=== PATIENT | male | born 1950 | race Caucasian/White ===

== ENCOUNTER 2021-11-06 12:40 | Inpatient (IN) | payer MEDICARE, OTHER ==
[2021-11-06] MEDS ORDERED: HEPARIN SODIUM,PORCINE 5,000 UNIT/ML 1 ML VIAL IV STA (12:48)
[2021-11-06] MEDS ORDERED: ATORVASTATIN 80 MG TAB PO STA (12:48)
[2021-11-06] MEDS ORDERED: LIDOCAINE 1% INJ 10MG/ML (20 ML MDV) ONE (12:51)
[2021-11-06] MEDS ORDERED: HEPARIN SODIUM 1,000 UN/ML (10ML VL) ONE (12:51)
[2021-11-06] MEDS ORDERED: VERAPAMIL 2.5 MG/ML 2 ML AMP ONE (12:51)
[2021-11-06] MEDS ORDERED: HEPARIN SODIUM 1,000 UN/ML (10ML VL) MISCELLANE ONE (12:52)
[2021-11-06] MEDS ORDERED: NALOXONE 0.4 MG/ML 1 ML VIAL IV PRN (12:55)
[2021-11-06] MEDS ORDERED: IV FLUID CONTINUATION 1,000 ML IV ONE (12:58)
--- NOTE | 2021-11-06 13:00 | ED ---
General Adult HPI - General Chief complaint: Chest Pain Stated complaint: STEMI Source: EMS Mode of arrival: EMS Limitations: no limitations - History of Present Illness Initial comments: Dictation was produced using [employer] dictation software. please excuse any grammatical, word or spelling errors. Chief Complaint: 71-year-old male presents to the emergency Department for ST segment elevation VT History of Present Illness: Patient is a 71-year-old male he was brought into the emergency department for ST segment elevation VT. Patient began having chest symptoms starting this morning upon waking. He states that it is a substernal tingling that radiates down to his left upper extremity. Also radiates to his right shoulder and right jaw. Patient denies any significant history. Patient did have mild shortness of breath. EMS was called to the scene they did an EKG showed inferior STEMI. He was given nitro and aspirin. Patient still having some active symptoms but reports significant improvement with the nitro glycerin. Denies any numbness to the arms or legs. The ROS documented in this emergency department record has been reviewed and confirmed by me. Those systems with pertinent positive or negative responses have been documented in the HPI. All other systems are other negative and/or noncontributory. PHYSICAL EXAM: General Impression: Alert and oriented x3, mild distress. HEENT: Normocephalic atraumatic, extra-ocular movements intact, pupils equal and reactive to light bilaterally, mucous membranes moist. Cardiovascular: Heart regular rate and rhythm Chest: Able to complete full sentences, no retractions, no tachypnea Abdomen: abdomen soft, non-tender, non-distended, no organomegaly Musculoskeletal: Pulses present and equal in all extremities, no peripheral edema Motor: no focal deficits noted Neurological: CN II-XII grossly intact, no focal motor or sensory deficits noted Skin: Intact with no visualized rashes Psych: Normal affect and mood ED course: 71-year-old male presents emergency department for ST segment elevation VT. Vital signs upon arrival are within acceptable limits. Prehospital EKG was reviewed showing inferior ST segment elevation VT with reciprocal depressions. STEMI was paged. Patient arrived in trauma bay 2. He received aspirin and nitroglycerin. Emergency room EKG showed inferior STEMI with cervical changes in the high lateral leads. Patient given heparin bolus. Patient disposition directly to the catheterization lab. Patient admitted to Dr. Feldman. EKG interpretation: Ventricular rate 71, normal sinus rhythm, KS interval 92, QRS 120, QTC 417. EKG represents ST segment elevation VT. - Related Data Allergies Allergy/AdvReac Type Severity Reaction Status Date / Time No Known Allergies Allergy Verified 11/06/21 12:41 Review of Systems ROS Statement: Those systems with pertinent positive or pertinent negative responses have been documented in the HPI. ROS Other: All systems not noted in ROS Statement are negative. Past Medical History Past Medical History: No Reported History History of Any Multi-Drug Resistant Organisms: None Reported Past Surgical History: Hernia Repair Past Psychological History: No Psychological Hx Reported Smoking Status: Current every day smoker Past Alcohol Use History: None Reported Past Drug Use History: Marijuana General Exam Limitations: no limitations Course Vital Signs 11/06/21 12:41 Temperature 97.8 F Pulse Rate 85 Respiratory 22 Rate Blood Pressure 128/72 O2 Sat by Pulse 100 Oximetry Critical Care Time Critical Care Time: Yes Total Critical Care Time: 18 Disposition Clinical Impression: STEMI (ST elevation myocardial infarction) Disposition: ADMITTED IP TO THIS HOSP Condition: Critical Referrals: None,Stated [Primary Care Provider] - 1-2 days
[2021-11-06] MEDS ORDERED: LIDOCAINE 1% INJ 10MG/ML (20 ML MDV) SQ ONE (13:05)
[2021-11-06] MEDS ORDERED: fentaNYL (PF) 50 MCG/ML 5 ML AMP IV ONE (13:05)
[2021-11-06] MEDS ORDERED: VERAPAMIL SYRINGE (5 MG/10 ML) INTRAARTER ONE (13:07)
[2021-11-06 13:12] LABS: Basophils # (A) 0.2 k/uL (0-0.2); Basophils % (A) 1 %; Eosinophils # (A) 0.3 k/uL (0-0.7); Eosinophils % (A) 3 %; HCT 51.2 % (39.0-53.0); HGB 17.3 gm/dL (13.0-17.5); Lymphocytes # (A) 4.5 k/uL (1.0-4.8); Lymphocytes % (A) 38 %; MCH 31.1 pg (25.0-35.0); MCHC 33.8 g/dL (31.0-37.0); MCV 92.1 fL (80.0-100.0); Mean Platelet Volume 8.4; Monocytes # (A) 0.8 k/uL (0-1.0); Monocytes % (A) 6 %; Neutrophils % (A) 50 %; Platelet Count 278 k/uL (150-450); RBC 5.57 m/uL (4.30-5.90); RDW 12.9 % (11.5-15.5)
[2021-11-06] MEDS: HEPARIN SODIUM 1,000 UN/ML (10ML VL) IV ONE ×3 (13:12→13:59)
[2021-11-06] MEDS ORDERED: PRASUGREL 10 MG TAB ONE (13:16)
--- NOTE | 2021-11-06 13:16 | XR ---
EXAMINATION TYPE: XR chest 1V portable DATE OF EXAM: 11/06/2021 COMPARISON: NONE HISTORY: STEMI. TECHNIQUE: Single AP portable frontal upright view of the chest is obtained. FINDINGS: There is chronic parenchymal change without suspicious focal air space opacity, pleural ef fusion, or pneumothorax seen. The cardiac silhouette size is within normal limits. The osseous str uctures are intact. Overlying EKG leads. IMPRESSION: No acute process.
[2021-11-06] MEDS ORDERED: PRASUGREL 10 MG TAB PO ONE (13:19)
[2021-11-06 13:20] LABS: Calcium 8.8 mg/dL (8.4-10.2); Potassium 3.9 mmol/L (3.5-5.1)
[2021-11-06 13:21] LABS: Partial Thromboplastin Time 23.9 sec (22.0-30.0); Prothrombin Time 10.4 sec (9.0-12.0)
[2021-11-06] MEDS ORDERED: IOPAMIDOL-370 125ML BTL INJ ONE (13:33)
[2021-11-06] MEDS ORDERED: IOPAMIDOL-370 100ML BTL INJ ONE (13:52)
[2021-11-06] MEDS ORDERED: ATROPINE SULFATE 0.1 MG/ML 10ML SYRINGE IV PRN (14:12)
[2021-11-06] MEDS ORDERED: RX INFO: IV CONTRAST WAS GIVEN 1 EACH MISC MISCELLANE PRN (14:12)
[2021-11-06] MEDS ORDERED: NITROGLYCERIN SL TABS 0.4 MG TAB SUBLINGUAL PRN (14:12)
[2021-11-06] MEDS ORDERED: MAG HYDROX/AL HYDROX/SIMETH 30 ML CUP PO PRN (14:12)
[2021-11-06] MEDS ORDERED: ZOLPIDEM 5 MG TAB PO PRN (14:12)
[2021-11-06] MEDS ORDERED: SODIUM CHLORIDE 0.9% 1,000 ML IV SCH (14:15)
--- NOTE | 2021-11-06 16:41 | CONS ---
CONSULTATION Mr. Miller is a 71-year-old male who does not see a primary care physician, who woke up this morning with severe substernal chest discomfort that persisted associated with dyspnea and mild dizziness. Came into the emergency room, was noted to have evidence of inferior wall myocardial infarction with possible posterior wall extension. The patient has no prior cardiac history. He had a similar episode about 3 months ago that subsequently resolved. He has no chronic dyspnea on exertion. No dizziness or palpitations on a regular basis. No syncope. No PND, orthopnea or peripheral edema. He takes no medication at home. His coronary risk factors are remarkable for smoking. He is nondiabetic. No documented hyperlipidemia. REVIEW OF SYSTEMS: RESPIRATORY system: He has no documented history of asthma, emphysema or bronchitis. GI system: No recent GI bleeding. No peptic ulcer disease. system: No dysuria or hematuria. Nervous system: No stroke or seizure. He smokes on a daily basis. Drinks caffeine but no alcohol. PHYSICAL EXAMINATION: 71-year-old male, alert, oriented, mild discomfort. Heart rate in the 70s. Blood pressure 130/70. HEAD: Normocephalic. Eyes: Sclerae anicteric. NECK: Good carotid upstroke. No bruit. No jugular venous distention. LUNGS with decreased air exchange. No wheezes. HEART: Regular rate and rhythm, S1, S2. No S3. No gallop. ABDOMEN: Soft, nontender. Positive bowel sounds. No organomegaly. EXTREMITIES: Decreased distal pulses. No edema. EKG revealed sinus mechanism, rate of 71, normal axis, ST elevation in lead 2, 3, AVF as ST depression in lead 1, aVL and elevation in lateral precordial leads consistent with inferolateral myocardial infarction with possible posterior extension. IMPRESSION: 1. Acute myocardial infarction. 2. Chronic tobacco use. RECOMMENDATIONS: I recommend proceeding with coronary angiography. The rationale behind the procedure as well as risks and complications were discussed with the patient who is in full understanding and agreement. Thank you for this consult. We will follow with you. MMODL / IJN: [id number] /
[2021-11-06] MEDS ORDERED: ALPRAZolam 0.25 MG TAB PO PRN (18:11)
[2021-11-06] MEDS ORDERED: TEMAZEPAM 15 MG CAP PO PRN (18:11)
--- NOTE | 2021-11-06 18:32 | CC ---
CARDIAC CATHETERIZATION REPORT Mr. Miller is a 71-year-old male who is not followed by a physician, history of chronic tobacco use, who presented with an acute inferior wall myocardial infarction. In view of that, recommendation made regarding cardiac catheterization, angioplasty and stenting, the procedure as well as the risks and the complications were discussed with the patient who is in full understanding and agreement. PROCEDURE DESCRIPTION: Patient was brought to photo lab manager. He was prepped and draped in conventional fashion, received Benadryl and fentanyl and after achieving moderate conscious sedated state, a 6-Jordanian sheath was introduced in the right radial artery. Right coronary angiography performed using 6-Jordanian 4 bend, right Nely guiding catheter. After obtaining images of the right coronary artery, angioplasty and stenting were performed. Following that, a 5-Jordanian 3.5 bend left Nely catheters was introduced in the system and images were obtained. Following that, a 5-Jordanian tight pigtail catheter was introduced into the left ventricle and left ventricular end-diastolic pressure was calculated. Following that, catheter and sheath were removed. Hemostasis was obtained with deployment of a TR band. There was no immediate complication. Patient is returned to his room in stable condition. Of note, the patient received a total of 7000 units of intravenous heparin during the procedure, his ACT was followed and he received a loading dose of Effient. RESULTS: ANGIOGRAPHY: LEFT MAIN: This is a large-sized vessel bifurcating into left circumflex, left anterior descending artery, left main coronary artery has no evidence of high-grade stenosis. LEFT ANTERIOR DESCENDING ARTERY: This vessel reaching to the apex, tapers down in distal third, giving rise to 3 obtuse marginal branches. The left anterior descending artery has a 20% to 30% plaque proximally in mid segment. The rest of the vessel has no high-grade stenosis. LEFT CIRCUMFLEX: This is a nondominant vessel giving rise to 3 obtuse marginal branches. Prior to the takeoff of the first obtuse marginal branch, there is a 70% to 80% stenosis extending in the first obtuse marginal branch with area of stenosis in the obtuse marginal branch of 90%. RIGHT CORONARY ARTERY: This vessel is subtotally occluded in the mid segment with no significant antegrade flow. The proximal segment of the RCA has about a 70% stenosis. LEFT VENTRICULOGRAM: Left ventriculogram was not performed. HEMODYNAMICS: There was no gradient across the aortic valve. The left ventricular end- diastolic pressure was 25-30 mmHg. ANGIOPLASTY AND STENTING: Using the 6-Jordanian FR4 guiding catheter, after cannulating the right coronary ostium, a 0.014 balanced medium weight J-wire with the help of a straight microcatheter was used to cross the total occlusion, positioned the wire distally. Subsequently a 2.5 x 12 mm Trek balloon was advanced and 2 inflations were done at 8 atmospheres. Following that, the balloon was removed and a 3.5 x 18 mm Xience SkyPoint was advanced, deployed and was dilated at 16 atmospheres. Following that, the balloon was removed and a 3.75 x 12 mm NC Trek balloon was advanced and inflation in the stent was done at 12 atmospheres. Following that, the balloon was removed and a 4.0 x 23 mm Xience SkyPoint stent was deployed proximally and it was dilated 16 atmospheres. Following that, and after removing the balloon, a 4.0 x 12 mm NC Trek balloon was advanced to the mid lesion and one inflation at 12 atmospheres was done. After the last inflation, after appropriate wait, the balloon and the guidewire were withdrawn back in the guiding catheter. Images were obtained repeated. Those images revealed stable successful stenting. RESULTS: 1. Successful stenting of the mid right coronary artery with reduction of stenosis from 100% to 0% with successful stenting of the proximal RCA with reduction of stenosis from 70% to 0%. 2. Significant disease in the proximal left circumflex and the first obtuse marginal branch. 3. Mild disease in the LAD. 4. Elevated left ventricular end-diastolic pressure. RECOMMENDATIONS: Patient will be continued on dual antiplatelet treatment. His medical regimen will be adjusted. He will continue on the dual antiplatelet treatment for at least 1 year. He will be evaluated to undergo percutaneous revascularization of his left circumflex at a later time. Of note, the patient's EKG changes and chest discomfort improved drastically at the end the procedure. Those findings and recommendations were discussed with the patient and his family, and they are in full understanding and agreement. Duration of sedation is 48 minutes. MMCHERIE / ARPITA: [id number] / MTDD
[2021-11-06 19:01] LABS: Glucose,Whole Blood 163 mg/dL (75-99)
--- NOTE | 2021-11-06 19:08 | HP ---
HISTORY AND PHYSICAL CHIEF COMPLAINT: Chest pain. HISTORY OF PRESENT ILLNESS: This 71-year-old gentleman with a past medical history of no significant medical issues except hernia repair and the patient is a smoker, not being followed by any family physician in the outpatient setting, had severe chest pain felt in the anterior part of the chest as well as shortness of breath and some dizziness. The pain is radiating to the back also. The patient came to [facility] ER. EKG showed features of hyperacute inferior myocardial infarction with ST-segment elevations in the anterior leads and the ST depressions. The patient was seen by Cardiology. Troponins elevated up to 0.154. COVID-19 was negative. The patient underwent cardiac catheterization and percutaneous intervention. The details of reports are not available at this time. There is no history of fever, rigors. No history of headache, loss of consciousness, seizures. PAST MEDICAL HISTORY: History of hernia repair. MEDICATIONS: None. ALLERGIES: None. FAMILY HISTORY: No history of heart disease or strokes in the family. SOCIAL HISTORY: History of smoking, occasional THC. REVIEW OF SYSTEMS: ENT: No diminished vision. No diminished hearing. CARDIOVASCULAR system as mentioned earlier. RESPIRATORY: As mentioned earlier. GI: No nausea or vomiting. : No dysuria. NERVOUS SYSTEM: No numbness or weakness. ALLERGY/IMMUNOLOGY: No asthma or hayfever. MUSCULOSKELETAL: As mentioned earlier. HEMATOLOGY/ONCOLOGY: No history of anemia. ENDOCRINE: No history of diabetes or hypothyroidism. CONSTITUTIONAL: As mentioned earlier. DERMATOLOGY: Negative. RHEUMATOLOGY: Negative. PSYCHIATRIC: As mentioned earlier. PHYSICAL EXAM: Alert and oriented times three. Pulse 68, blood pressure 121/60, respirations 16, temperature is normal. Pulse ox 98% on 2 L. HEENT: Conjunctivae normal. NECK: No JVD. CARDIOVASCULAR: S1, S2 muffled. RESPIRATORY: Breath sounds diminished in the bases. No rhonchi. No crackles. ABDOMEN: Soft. Nontender. No mass palpable. LEGS: No edema. No swelling. NERVOUS SYSTEM: No focal deficits. NERVOUS SYSTEM: Higher functions as mentioned earlier. Moves all four limbs. No focal deficits. LYMPHATICS: No lymph nodes palpable in the neck, axillae or groin. SKIN: No ulcer, no rash and no bleeding. JOINTS: No active deforming arthropathy. LABS: WBC 12.5, hemoglobin 17.3, sodium 136, CO2 is 15, glucose 249 and troponin 0.05. Covid 19 is negative. ASSESSMENT: 1. Acute ST-segment elevation inferior wall myocardial infarction status post cardiac catheterization and PCI. 2. Diabetes mellitus type 2 possibly new onset, uncontrolled. 3. Decreased CO2 with possible mild metabolic acidosis. 4. Hyponatremia. 5. Increased WBC, possibly reactive. 6. Troponin elevated up to 0.054. 7. History of hernia repair. 8. History of nicotine dependence. 9. History of THC. 10.Obesity with body mass index of 33.5. 11.FULL CODE. RECOMMENDATIONS AND DISCUSSION: In this 71-year-old gentleman who presented with multiple complex medical issues, at this time I recommend to continue the current medications, symptomatic treatment. Follow closely with Cardiology. Patient will be monitored in ICU. I would also recommend serum acetone and Accu-Cheks a.c. and q.h.s. Hemoglobin A1c also. Recommend closely follow with the primary physician in the outpatient setting. Prognosis guarded because of multiple complex medical issues. Further recommendations to follow. Stat labs also will be requested and UA with micro and chest x-ray which I reviewed personally showed no acute process. Further recommendations to follow. Dual antiplatelet treatment and beta blockers, JASE inhibitors, Lipitor. MMODL / IJN: [id number] / MTDDarren
[2021-11-06 21:09] LABS: Glucose,Whole Blood 205 mg/dL (75-99)
[2021-11-06] MEDS: NICOTINE 14MG/24HR PATCH TRANSDERM SCH (21:26)
[2021-11-06] MEDS: PANTOPRAZOLE 40 MG TABLET PO SCH (21:26)
[2021-11-06] MEDS: INSULIN ASPART (NovoLOG) 100 UNIT/ML VIAL SQ SCH (21:29)
[2021-11-06] MEDS: METOPROLOL TARTRATE 25 MG TAB PO SCH (21:33)
[2021-11-07 01:09] LABS: Chol/HDL Ratio 6.15 Ratio
[2021-11-07 04:07] LABS: Basophils # (A) 0.1 k/uL (0-0.2); Basophils % (A) 1 %; Eosinophils # (A) 0.2 k/uL (0-0.7); Eosinophils % (A) 1 %; HCT 47.1 % (39.0-53.0); HGB 15.7 gm/dL (13.0-17.5); Lymphocytes # (A) 2.3 k/uL (1.0-4.8); Lymphocytes % (A) 18 %; MCH 31.2 pg (25.0-35.0); MCHC 33.3 g/dL (31.0-37.0); MCV 93.5 fL (80.0-100.0); Mean Platelet Volume 8.1; Monocytes # (A) 0.9 k/uL (0-1.0); Monocytes % (A) 7 %; Neutrophils # (A) 9.2 k/uL (1.3-7.7); Neutrophils % (A) 72 %; Platelet Count 215 k/uL (150-450); RBC 5.04 m/uL (4.30-5.90); RDW 13.1 % (11.5-15.5); WBC 12.7 k/uL (3.8-10.6)
[2021-11-07 04:14] LABS: Calcium 8.8 mg/dL (8.4-10.2); Potassium 4.2 mmol/L (3.5-5.1)
[2021-11-07 06:41] LABS: Glucose,Whole Blood 181 mg/dL (75-99)
[2021-11-07] MEDS: INSULIN ASPART (NovoLOG) 100 UNIT/ML VIAL SQ SCH ×4 (06:53→21:21)
[2021-11-07] MEDS: PANTOPRAZOLE 40 MG TABLET PO SCH (06:53)
[2021-11-07 07:22] LABS: Appearance,Urine Clear (Clear); Bilirubin,Urine Negative (Negative); Blood,Urine Trace (Negative); Color,Urine Yellow; Glucose,Urine (UA) 2+ (Negative); Hyaline Casts,Urine 1 /lpf (0-2); Ketones,Urine Negative (Negative); Leukocyte Esterase,Urine Negative (Negative); Mucus,Urine Rare /hpf; Nitrite,Urine Negative (Negative); Protein,Urine Trace (Negative); RBC,Urine 1 /hpf (0-5); Urobilinogen,Urine <2.0 mg/dL (<2.0); WBC,Urine 1 /hpf (0-5)
[2021-11-07 07:38] LABS: Amphetamine Screen,Urine Not Detected (NotDetected); Barbiturate Screen,Urine Not Detected (NotDetected); Benzodiazepines Screen,Urine Not Detected (NotDetected); Cocaine Screen,Urine Not Detected (NotDetected); Methadone Screen, Urine Not Detected (NotDetected); Opiate Screen,Urine Not Detected (NotDetected); Oxycodone Screen, Urine Not Detected (NotDetected); Phencyclidine Screen,Urine Not Detected (NotDetected); Tricyclic Antidepressant,Urine Not Detected (NotDetected); Urn Cannabinoid Scrn Detected (NotDetected)
[2021-11-07 07:39] LABS: Specific Gravity,Urine 1.048 (1.001-1.035)
[2021-11-07] MEDS: METOPROLOL TARTRATE 25 MG TAB PO SCH ×2 (08:15→21:21)
[2021-11-07] MEDS: PRASUGREL 10 MG TAB PO SCH (08:15)
[2021-11-07] MEDS: ASPIRIN 81 MG PO SCH (08:15)
[2021-11-07] MEDS: NICOTINE 14MG/24HR PATCH TRANSDERM SCH (08:15)
[2021-11-07] MEDS: SPIRONOLACTONE 25 MG TAB PO SCH (08:43)
--- NOTE | 2021-11-07 11:00 | ECHOF ---
Referral Reason:ut MEASUREMENTS -------- HEIGHT: 180.3 cm WEIGHT: 108.9 kg BP: IVSd: 0.9 cm (0.6 - 1.1) LVIDd: 5.2 cm (3.9 - 5.3) LVPWd: 0.9 cm (0.6 - 1.1) IVSs: 1.6 cm LVIDs: 3.9 cm LVPWs: 1.4 cm LAESV Index (A-L): 17.83 ml/m Ao Diam: 3.3 cm (2.0 - 3.7) AV Cusp: 2.1 cm (1.5 - 2.6) LA Diam: 4.0 cm (2.7 - 3.8) MV EXCURSION: 18.807 mm (> 18.000) MV EF SLOPE: 130 mm/s (70 - 150) EPSS: 3.0 cm MV E Meño: 0.75 m/s MV DecT: 163 ms MV A Meño: 0.63 m/s MV E/A Ratio: 1.19 RAP: 5.00 mmHg RVSP: 8.27 mmHg FINDINGS -------- This was a technically good study. The left ventricular size is normal. Left ventricular wall thickness is normal. Overall left vent ricular systolic function is mild-moderately impaired with, an EF between 40 - 45 %. Inferiorlatera l Hypokinesis The right ventricle is normal in size. The left atrial size is normal. The right atrial size is normal. The aortic valve is trileaflet and appears structurally normal. The mitral valve is normal. There is trace mitral regurgitation. The tricuspid valve appears structurally normal. Trace tricuspid regurgitation present. Right chester tricular systolic pressure is normal at < 35 mmHg. There is no pulmonic regurgitation present. The aortic root size is normal. IVC Not well visulized. There is no pericardial effusion. CONCLUSIONS -------- 1. The left ventricular size is normal. 2. Left ventricular wall thickness is normal. 3. Overall left ventricular systolic function is mild-moderately impaired with, an EF between 40 - 45 %. 4. Inferiorlateral Hypokinesis 5. There is trace mitral regurgitation. 6. Trace tricuspid regurgitation present. DESOLDERER: Ana Peña RDCS
--- NOTE | 2021-11-07 11:03 | PN ---
PROGRESS NOTE Mr. Miller is a 71-year-old male who presented with an acute inferior wall myocardial infarction, underwent cardiac catheterization and was found to have totally occluded mid RCA and underwent stenting of that vessel in two segments. He had also obstructive disease involving the proximal left circumflex and first obtuse marginal branch. He is doing well this morning. He is denying any chest pain. His breathing is stable. He had mild discomfort yesterday that resolved. He denies any dizziness or palpitations. He is in sinus mechanism. He had no evidence of malignant arrhythmia. He continues to be at this time on aspirin once a day, Effient 10 mg daily, Lipitor 80 mg daily, lisinopril 2.5 mg daily, metoprolol tartrate 25 mg twice a day. PHYSICAL EXAMINATION: Blood pressure running in the 110s with a heart rate in the 60s. Lungs clear. Heart: Regular rate and rhythm. S1, S2. No S3. No rub appreciated. Abdomen soft, non-tender. Right radial pulse intact. LAB DATA: Lab data revealed a troponin peak of 186. BUN and creatinine of 15 and 1.19, potassium of 4.2, hemoglobin of 15.7. IMPRESSION: 1. Status post acute inferior wall myocardial infarction with a large dominant vessel. 2. Hyperlipidemia, not treated in the past. 3. Chronic tobacco use. RECOMMENDATIONS: From the cardiac standpoint, I will add Aldactone 25 mg to his regimen. Will obtain echocardiogram with Doppler, increase his level activity gradually. If he is stable he should be able to be transferred to telemetry floor. Depending on his progress, further recommendations will be made. The patient would require a staged procedure for his circumflex territory, and that depends on his status. The timing will be decided at that time. If he remains stable, I would expect he will be transferred to telemetry floor in the afternoon. MMODL / IJN: [id number] /
[2021-11-07 13:07] LABS: Glucose,Whole Blood 229 mg/dL (75-99)
[2021-11-07 13:16] VITALS: BMI 29.4
[2021-11-07 17:04] LABS: Glucose,Whole Blood 117 mg/dL (75-99)
--- NOTE | 2021-11-07 17:36 | PN ---
PROGRESS NOTE DATE OF SERVICE: 11/07/2021. This 71-year-old gentleman who was admitted with acute ST elevation myocardial infarction had PCI of the RCA. Patient being closely monitored. No chest pain. No palpitations. No fever. PHYSICAL EXAMINATION: Alert and oriented x3. The pulse is 58, blood pressure 106/48, respirations 16, temperature is normal. Pulse ox 98% on room air. HEENT: Conjunctivae normal. NECK: No JVD. CARDIOVASCULAR: S1, S2 muffled. RESPIRATORY: Breath sounds diminished in the bases. No rhonchi. No crackles. ABDOMEN: Soft. Nontender. NERVOUS SYSTEM: No focal deficits. LAB STUDIES: WBC 12.7, glucose 181 and 229. Hemoglobin A1c is not available. Troponin is noted. Drug screen is positive for THC. ASSESSMENT: 1. Acute ST-segment elevation myocardial infarction status post cardiac catheterization and stenting of the mid RCA with reduction of stenosis from 100% to 0%. 2. Successful stenting of the proximal RCA with reduction 70% to 0%. 3. Significant disease in the proximal left circumflex and first obtuse marginal branch and mild disease in the LAD. 4. Ejection fraction 40-45 percent with congestive heart failure and acute systolic dysfunction. 5. possibly new onset uncontrolled with hyperglycemia. 6. Decreased CO2 with possible mild metabolic acidosis, present on admission. 7. Hyponatremia. 8. Increased WBC possibly reactive. 9. Positive THC. 10.Troponin elevated up to 186. 11.History of hernia repair. 12.History of nicotine dependence. 13.Obesity with body mass index of 33.5. 14.FULL CODE. RECOMMENDATIONS AND DISCUSSION: Continue current medications, management and symptomatic treatment. Continue with dual antiplatelet treatment. Monitor blood pressure closely. Otherwise, DVT prophylaxis. Two-D echo reviewed. Prognosis guarded because of multiple complex medical issues. Closely follow with Cardiology. Recommend close followup with primary physician in the outpatient setting. MMODL / IJN: [id number] / MTDD
[2021-11-07 20:52] LABS: Glucose,Whole Blood 136 mg/dL (75-99)
[2021-11-07] MEDS ORDERED: ATORVASTATIN 80 MG TAB PO SCH (21:00)
[2021-11-08 00:04] VITALS: RESP 16
[2021-11-08 05:57] LABS: Glucose,Whole Blood 166 mg/dL (75-99)
[2021-11-08] MEDS: PANTOPRAZOLE 40 MG TABLET PO SCH (06:35)
[2021-11-08] MEDS: INSULIN ASPART (NovoLOG) 100 UNIT/ML VIAL SQ SCH ×2 (06:35→12:44)
[2021-11-08] MEDS: NICOTINE 14MG/24HR PATCH TRANSDERM SCH (08:03)
[2021-11-08] MEDS: PRASUGREL 10 MG TAB PO SCH (08:03)
[2021-11-08] MEDS: METOPROLOL TARTRATE 25 MG TAB PO SCH (08:04)
[2021-11-08] MEDS: SPIRONOLACTONE 25 MG TAB PO SCH (08:04)
[2021-11-08] MEDS: ASPIRIN 81 MG PO SCH (08:05)
[2021-11-08 08:15] LABS: Calcium 8.9 mg/dL (8.4-10.2); Potassium 4.4 mmol/L (3.5-5.1)
--- NOTE | 2021-11-08 08:52 | PN ---
PROGRESS NOTE Mr. Miller is a 71-year-old male who presented with an acute myocardial infarction, underwent stenting of the RCA. He was found to have disease in the proximal left circumflex, first obtuse marginal branch. He is doing well this morning, ambulating without difficulty. He is denying any chest pain. No dizziness. No palpitation. Continues to be on aspirin once a day, Lipitor 80 mg daily, lisinopril 2.5 mg daily, metoprolol tartrate 25 mg twice a day, spironolactone 25 mg daily and Effient 10 mg daily. PHYSICAL EXAMINATION: Blood pressure 104/60 with a heart rate in 50s. Lungs: Clear. Heart: Regular rhythm S1, S2. No S3. No rub. Abdomen: Soft nontender. Extremities: No edema. LAB DATA: BUN and creatinine of 15 and 1.34, potassium 4.4. He had an echocardiogram performed revealed an ejection fraction of 40% to 45% with inferolateral hypokinesis. IMPRESSION: 1. Status post acute inferior wall myocardial infarction with stenting of the totally occluded right coronary artery. 2. Obstructive disease in the first obtuse marginal branch and proximal left circumflex. 3. Prior history of smoking. 4. Hyperlipidemia. 5. Ischemic cardiomyopathy. RECOMMENDATIONS: Patient will be discharged home today. He will be switched to Plavix because of cost. He will be further seen in the office next week and decision will be made at that time to undergo staged angioplasty and stenting of the left circumflex. The importance of smoking cessation was discussed with the patient. NANO / ARPITA: [id number] /
[2021-11-08 10:14] VITALS: PULSE 59
[2021-11-08 11:47] LABS: Glucose,Whole Blood 141 mg/dL (75-99)
[2021-11-08 12:53] VITALS: BP 117/66; TEMP 97.6
--- NOTE | 2021-11-10 09:55 | P.DS ---
Providers Date of admission: 11/06/21 12:56 Expected date of discharge: 11/08/21 Attending physician: Lazaro Feldman Consults: 11/06/21 14:12 Consult Physician Routine Consulting Provider: [facility] Consult Reason/Comments: Post Interventional patient Do you want consulting provider notified?: Already Contacted Primary care physician: Stated None Hospital Course: Final diagnosis Acute STEMI status post cardiac catheterization and stenting of the mid RCA with reduction of stenosis from 100-0% Successful stenting of the proximal RCA with reduction of 70% to 0 Significant disease of the proximal left circumflex and first obtuse marginal branch and mild disease in the LAD Ejection fraction 40-45% with congestive heart failure and acute systolic dysfunction Possibly new onset diabetes uncontrolled hyperglycemia Decreased CO2 with possible metabolic acidosis, present on admission Hyponatremia Increased white blood count possibly reactive Positive THC Troponin elevated up to 186 history of hernia repair history of nicotine dependence obesity with a body mass index of 33.5 Full code Discharge disposition Patient is being discharged in a stable condition with guarded prognosis to home. Patient will follow-up with Dr. Sharp in the outpatient setting upon discharge. Patient is to follow-up with cardiology Verena as discussed and scheduled next week. Patient to continue on aspirin and Plavix along with Aldactone Lipitor metoprolol lisinopril upon discharge. Total time taken is greater than 35 minutes. Hospital course This is a 71-year-old male who was recently admitted with chest pain acute ST elevation myocardial infarction and had PCI of the RCA and was being closely monitored. Cardiology following closely and started on multiple medications and will need post outpatient follow-up to discuss further interventions in the outpatient setting. Patient is requesting to go home.Patient currently does not have a primary care provider and resources provided for primary care provider and encourage the patient to follow-up this week along with cardiology as scheduled. Currently no reports of chest pain, shortness of breath, or palpitations. Patient is afebrile. No reports of nausea or vomiting and patient is tolerating diet. Patient will be discharged home today. Guarded prognosis. On exam vital signs are stable. Cardio S1, S2 are muffled. Respiratory system shows diminished breath sounds at the bases with no wheezing or rhonchi noted. Abdomen is soft and nontender. Nervous system shows no focal deficits. Please refer to medication reconciliation sheet for a list of medications. Patient Condition at Discharge: Fair Plan - Discharge Summary Discharge Rx Participant: Yes New Discharge Prescriptions: New Clopidogrel Bisulfate [Plavix] 75 mg PO DAILY 30 Days #30 tab Spironolactone [Aldactone] 25 mg PO DAILY #90 tab Atorvastatin [Lipitor] 80 mg PO HS #90 tab Aspirin 81 mg PO DAILY tab Metoprolol Tartrate [Lopressor] 25 mg PO BID #180 tab lisinopriL [Zestril] 2.5 mg PO DAILY #90 tab Nicotine 14Mg/24Hr Patch [Habitrol] 1 patch TRANSDERM DAILY #30 patch Pantoprazole [Protonix] 40 mg PO AC-BRKFST 30 Days #30 tab Discharge Medication List Clopidogrel Bisulfate [Plavix] 75 mg PO DAILY 30 Days #30 tab 11/07/21 [Rx] Aspirin 81 mg PO DAILY tab 11/08/21 [Rx] Atorvastatin [Lipitor] 80 mg PO HS #90 tab 11/08/21 [Rx] Metoprolol Tartrate [Lopressor] 25 mg PO BID #180 tab 11/08/21 [Rx] Nicotine 14Mg/24Hr Patch [Habitrol] 1 patch TRANSDERM DAILY #30 patch 11/08/21 [Rx] Pantoprazole [Protonix] 40 mg PO AC-BRKFST 30 Days #30 tab 11/08/21 [Rx] Spironolactone [Aldactone] 25 mg PO DAILY #90 tab 11/08/21 [Rx] lisinopriL [Zestril] 2.5 mg PO DAILY #90 tab 11/08/21 [Rx] Follow up Appointment(s)/Referral(s): Ye Albarado MD [STAFF PHYSICIAN] - 1 Week (office will call you with an appoinment) [facility]hab [facility],Cardiac [NON-STAFF] - 1 Week Colette Sharp MD [REFERRING] - 11/12/21 1:30 am Ambulatory/Diagnostic Orders: Basic Metabolic Panel [LAB.AMB] Time Frame: 3 Days, Location: None Selected Patient Instructions/Handouts: *Surgery [facility] - After Heart Catheterization - Hotel Administrative Assistant Instructions, Heart Attack (DC), Cardiac Rehabilitation (DC), Coronary Intravascular Stent Placement (DC) Activity/Diet/Wound Care/Special Instructions: Activity Limited until follow-up Follow-up primary care provider and establish Follow-up cardiology as discussed in one week Continue heart healthy diet Take medications as prescribed Repeat labs in 2-3 days Avoid tobacco use Discharge Disposition: HOME SELF-CARE
== END 2021-11-08 15:09 | disposition home or self-care (01) | DRG 246 ==
LOC: CATHCVL 12:40 → 2SICU 12:56 → 3SCARD 11-07 21:16
PROVIDERS: ADMIT Hospitalist; ATTEND Hospitalist
PROC: B2111ZZ Fluoroscopy of Multiple Coronary Arteries using Low Osmolar Contrast (ICD-10-PCS; 2021-11-06)
PROC: 027034Z Dilation of Coronary Artery, One Artery with Drug-eluting Intraluminal Device, Percutaneous Approach (ICD-10-PCS; principal; 2021-11-06 15:30)
PROC: 4A023N7 Measurement of Cardiac Sampling and Pressure, Left Heart, Percutaneous Approach (ICD-10-PCS; 2021-11-06 15:30)
DX: I21.19 ST elevation (STEMI) myocardial infarction involving other coronary artery of inferior wall (principal); I50.21 Acute systolic (congestive) heart failure; E87.1 Hypo-osmolality and hyponatremia; E11.9 Type 2 diabetes mellitus without complications; E66.9 Obesity, unspecified; Z68.33 Body mass index [BMI] 33.0-33.9, adult; E78.5 Hyperlipidemia, unspecified; F17.200 Nicotine dependence, unspecified, uncomplicated; I25.10 Atherosclerotic heart disease of native coronary artery without angina pectoris; I25.5 Ischemic cardiomyopathy; Z20.822 Contact with and (suspected) exposure to COVID-19; Z79.02 Long term (current) use of antithrombotics/antiplatelets; Z79.899 Other long term (current) drug therapy
CPT/HCPCS: 71045; 80048; 80061; 80306; 81001; 83036; 84484; 85025; 85610; 85730; 87635; 93005; 93306; 93458; 94760; 96374; 99285

== ENCOUNTER 2022-01-08 07:10 | Day surgery (SDC) | payer MEDICARE ==
[2022-01-06 15:36] VITALS: BMI 29.4
[~2022-01-08 07:10] MED LIST: ALPRAZolam 0.25 MG TAB PO PRN; ALPRAZolam 0.5 MG TAB PO PRN; ASPIRIN 325 MG TAB PO STA; HEPARIN SODIUM,PORCINE 10,000 UNIT in SODIUM CHLORIDE 0.9% 1,000 ML IRRIGATION PRN; HEPARIN SODIUM,PORCINE 2,500 UNIT in SODIUM CHLORIDE 0.9% 250 ML IRRIGATION PRN; NITROGLYCERIN SL TABS 0.4 MG TAB SUBLINGUAL PRN; SODIUM CHLORIDE 0.9% 1,000 ML in EMPTY BAG 1 BAG IV SCH
[2022-01-08 08:02] LABS: Glucose,Whole Blood 157 mg/dL (75-99)
[2022-01-08] MEDS ORDERED: SODIUM CHLORIDE 0.9% 1,000 ML IV ONE (08:03)
[2022-01-08 08:07] VITALS: TEMP 98.2
[2022-01-08 08:11] LABS: Basophils # (A) 0.1 k/uL (0-0.2); Basophils % (A) 1 %; Eosinophils # (A) 0.4 k/uL (0-0.7); Eosinophils % (A) 5 %; HCT 39.2 % (39.0-53.0); HGB 13.5 gm/dL (13.0-17.5); Lymphocytes % (A) 21 %; MCH 31.8 pg (25.0-35.0); MCHC 34.4 g/dL (31.0-37.0); MCV 92.6 fL (80.0-100.0); Mean Platelet Volume 8.1; Monocytes # (A) 0.6 k/uL (0-1.0); Monocytes % (A) 7 %; Neutrophils # (A) 6.2 k/uL (1.3-7.7); Neutrophils % (A) 65 %; Platelet Count 237 k/uL (150-450); RBC 4.23 m/uL (4.30-5.90); RDW 13.5 % (11.5-15.5); WBC 9.5 k/uL (3.8-10.6)
[2022-01-08] MEDS ORDERED: CLOPIDOGREL 75 MG TAB ONE (08:12)
[2022-01-08] MEDS ORDERED: METOPROLOL TARTRATE 25 MG TAB PO STA (08:14)
[2022-01-08 08:39] LABS: Calcium 9.1 mg/dL (8.4-10.2); Potassium 3.9 mmol/L (3.5-5.1)
[2022-01-08] MEDS ORDERED: fentaNYL (PF) 50 MCG/ML 2 ML AMP ONE (08:51)
[2022-01-08] MEDS ORDERED: HEPARIN SODIUM 1,000 UN/ML (10ML VL) ONE (08:51)
[2022-01-08] MEDS ORDERED: fentaNYL (PF) 50 MCG/ML 2 ML AMP IVP ONE (09:18)
[2022-01-08] MEDS ORDERED: LIDOCAINE 1% INJ 10MG/ML (20 ML MDV) SQ ONE (09:21)
[2022-01-08] MEDS ORDERED: VERAPAMIL SYRINGE (5 MG/10 ML) INTRAARTER ONE (09:24)
[2022-01-08] MEDS: HEPARIN SODIUM 1,000 UN/ML (10ML VL) IVP ONE ×2 (09:28→10:56)
[2022-01-08] MEDS ORDERED: IOPAMIDOL-370 125ML BTL INJ ONE (09:42)
[2022-01-08] MEDS ORDERED: IOPAMIDOL-370 100ML BTL INJ ONE ×2 (10:12→10:49)
[2022-01-08] MEDS ORDERED: NITROGLYCERIN 1000MCG/10ML SYRINGE INTRACORON ONE (10:33)
[2022-01-08] MEDS ORDERED: ATROPINE SULFATE 0.1 MG/ML 10ML SYRINGE IV PRN (10:59)
[2022-01-08] MEDS ORDERED: NITROGLYCERIN SL TABS 0.4 MG TAB SUBLINGUAL PRN (10:59)
[2022-01-08] MEDS ORDERED: MAG HYDROX/AL HYDROX/SIMETH 30 ML CUP PO PRN (10:59)
[2022-01-08] MEDS ORDERED: ZOLPIDEM 5 MG TAB PO PRN (10:59)
[2022-01-08] MEDS ORDERED: RX INFO: IV CONTRAST WAS GIVEN 1 EACH MISC MISCELLANE PRN (10:59)
[2022-01-08] MEDS ORDERED: SODIUM CHLORIDE 0.9% 1,000 ML in EMPTY BAG 1 BAG IV SCH (11:00)
--- NOTE | 2022-01-08 11:45 | P.CARDCATH ---
Date of Procedure: 01/08/22 Description of Procedure: Cardiac Catheterization: The patient is a 71-year-old male with a history of diabetes and hyperlipidemia who presented recently with an acute inferior wall myocardial infarction, underwent stenting of the RCA and was found to have significant obstructive disease involving OM1. He has occasional chest discomfort since his initial intervention. Recommendations were made regarding cardiac catheterization, the risks and the complications were discussed with the patient who is in full understanding and agreement. 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 Using Xylocaine Anesthesia and Seldinger technique, a 6-Nigerian sheath was introduced in the right radial artery . Subsequently, selective coronary angiography performed using a 5-Nigerian 3.5 bend right Nely catheter and 6-Nigerian EBU 3.75 guiding catheter. Multiple views of the coronary artery including hemiaxial views were obtained. The right Nely catheter was used to cross the aortic valve and LVEDP was calculated. Following that, catheter were removed. Angioplasty was performed of the left circumflex. Hemostasis was obtained with deployment of TR band . There was no immediate co mplication. Patient was returned to room in stable condition. Of note, the patient received a total of 8000 units of intravenous heparin as well as intra- arterial verapamil. There was no immediate complications. Findings: Left main: This is a short sized vessel bifurcating into LAD and left circumflex, left main has no high-grade stenosis. LAD: This is a large size vessel, tapers down in the distal third, gives rise to diagonal branch, the second one is larger. At the takeoff of the diagonal branch there is a 30-40% plaque. Left circumflex: This is a nondominant vessel, giving rise to 3 obtuse marginal branch. The proximal circumflex has a 20 to 30% plaque the first OM has a 99% stenosis. RCA: This is a large dominant vessel, bifurcating into PDA and PLV. The stented segment in the proximal and mid RCA showed no evidence of high-grade stenosis [Left] Ventriculogram: Was not performed Hemodynamics: There was no gradient across the aortic valve, LVEDP 10-12 mmHg Conclusion: 1. Critical stenosis in OM1 2. Patent stent in the RCA 3. Mild to moderate disease in the proximal left circumflex 4. Mild to moderate disease in the proximal LAD Recommendations: I Have recommended to proceed with angioplasty and stenting of the OM. The procedure as well as the risks and the complications were discussed with the patient who was in full agreement and understanding.
[2022-01-08 11:50] VITALS: RESP 16
--- NOTE | 2022-01-08 11:50 | P.CARDCATH ---
Date of Procedure: 01/08/22 Description of Procedure: PERCUTANEOUS TRANSLUMINAL CORONARY ANGIOPLASTY CLINICAL INFORMATION: The patient is a 71-year-old male sustained an inferior wall myocardial infarction recently and was found to have significant stenosis the OM1, underwent cardiac catheterization and was found to have a patent RCA with significant disease in the OM1. Recommendations were made regarding angioplasty and stenting. The procedure as well as the risks and the complications were discussed with the patient who was in understanding and agreement. PROCEDURE: A 6 Swedish 3.75 EBU guiding catheter was introduced into the system. After cannulating the left main, attempts to advance a 0.014 balanced medium J- wire across the lesion were unsuccessful, the wire was removed and a 0.014 whisper J-wire with the help of a straight find cross were used to advance the wire across the lesion and position distally. Attempt to advance the microcatheter through the lesion were unsuccessful. The microcatheter was removed and attempt to advance a 1.5 x 8 mm mini Treck were unsuccessful. After removing that balloon attempt to advance a 1.0 x 8 mm Sapphire balloon were unsuccessful. The balloon was removed and Guidzella was advanced and with the help of the supporting catheter the Sapphire balloon was advanced, inf lations at 10 celso were done. Following that the 1.5 x 8 mm balloon was advanced and inflation at 10 celso were performed. Subsequently a 2.0 x 12 mm Treck balloon was advanced and inflation at 8 celso was done. After that and with the help of the microcatheter the wire was exchanged to a BMW wire. After removing the microcatheter a 2.0 x 18 resolute [place] stent was deployed and dilated at 16 celso. After the last inflation, after appropriate wait, the balloon and the guidewire were withdrawn back into the guiding catheter. Images were obtained and repeated. Those images reveal stable successful stenting. At that point, the guiding catheter, the balloon, and guidewire were removed. The sheath was removed. Hemostasis was obtained with deployment of the TR band. There were no immediate complications. The patient was returned to the room in stable condition. Of note, the patient received 8000 units of heparin as well as continued on Plavix. RESULTS: Successful stenting of the OM1 with reduction of stenosis from 99 % to 0 %. RECOMMENDATIONS: The patient will continue on dual antiplatelet treatment for one year in addition to aggressive coronary risks modifications. The procedure as well as the results were discussed with the patient and his family and they are in full understanding and agreement. Duration of sedation 93 minutes.
[2022-01-08 15:46] VITALS: BP 115/70; PULSE 44
[2022-01-08] MEDS ORDERED: METOPROLOL TARTRATE 25 MG TAB PO SCH (21:00)
[2022-01-08] MEDS ORDERED: ATORVASTATIN 80 MG TAB PO SCH (21:00)
[2022-01-09] MEDS ORDERED: ASPIRIN 81 MG PO SCH (09:00)
[2022-01-09] MEDS ORDERED: Semaglutide [Rybelsus] 3 MG Tablet PO SCH (09:00)
[2022-01-09] MEDS ORDERED: CLOPIDOGREL 75 MG TAB PO SCH (09:00)
[2022-01-09] MEDS ORDERED: SPIRONOLACTONE 25 MG TAB PO SCH (09:00)
== END 2022-01-08 16:00 | disposition home or self-care (01) ==
LOC: CATHCVL 07:10
PROVIDERS: ATTEND Internal Medicine Interventional Cardiology
DX: R06.02 Shortness of breath (principal); I25.110 Atherosclerotic heart disease of native coronary artery with unstable angina pectoris; E78.2 Mixed hyperlipidemia; E11.9 Type 2 diabetes mellitus without complications; I25.5 Ischemic cardiomyopathy; E78.00 Pure hypercholesterolemia, unspecified; Z20.822 Contact with and (suspected) exposure to COVID-19; I25.2 Old myocardial infarction; Z87.891 Personal history of nicotine dependence; Z98.890 Other specified postprocedural states; Z82.49 Family history of ischemic heart disease and other diseases of the circulatory system; Z95.5 Presence of coronary angioplasty implant and graft; Z79.02 Long term (current) use of antithrombotics/antiplatelets; Z79.82 Long term (current) use of aspirin; Z79.899 Other long term (current) drug therapy
CPT/HCPCS: 93458; 80048; 85025; 87635; C9600; C1769 ×4; C1887 ×3; C1894; C1725 ×3; C1874; J2001; J3010; J1644; Q9967 ×2

== ENCOUNTER → 2022-04-17 | Outpatient (CLI) | payer MEDICARE ==
[2022-04-18 04:01] LABS: ALT 17 U/L (10-49); AST 21 U/L (14-35); African American GFR (CKD) 65.1 (60.0-200.0); Albumin/Globulin Ratio 1.65 (1.60-3.17); Alkaline Phosphatase 70 U/L (41-126); BUN/Creat Ratio 9.07 Ratio (12.00-20.00); Blood Urea Nitrogen 11.7 mg/dL (9.0-27.0); Calcium 9.1 mg/dL (8.7-10.3); Carbon Dioxide 22.4 mmol/L (20.0-27.5); Chloride 106 mmol/L (96-109); Chol/HDL Ratio 2.66 Ratio; Globulin 2.4 g/dL (1.6-3.3); Glucose 128 mg/dL (70-110); LDL Cholesterol,Calculated 39.7 mg/dL (0.0-131.0); Non-African American GFR(CKD) 56.2 (60.0-200.0); Potassium 4.4 mmol/L (3.5-5.5); Sodium 139 mmol/L (135-145); Total Protein 6.5 g/dL (6.2-8.2); VLDL Calculation 16.32 mg/dL (5.00-40.00)
== END | disposition home or self-care (01) ==
LOC: LABWHC1 17:17
PROVIDERS: ATTEND Internal Medicine Interventional Cardiology
DX: E78.2 Mixed hyperlipidemia (principal)
CPT/HCPCS: 36415; 80053; 80061

== ENCOUNTER → 2022-12-08 | Outpatient (CLI) | payer MEDICARE ==
[2022-12-08 14:56] LABS: ALT 23 U/L (10-49); AST 28 U/L (14-35); African American GFR (CKD) 60.7 (60.0-200.0); Albumin 3.9 g/dL (3.8-4.9); Albumin/Globulin Ratio 1.47 (1.60-3.17); Alkaline Phosphatase 83 U/L (41-126); BUN/Creat Ratio 10.96 Ratio (12.00-20.00); Blood Urea Nitrogen 14.9 mg/dL (9.0-27.0); Calcium 8.9 mg/dL (8.7-10.3); Carbon Dioxide 23.7 mmol/L (20.0-27.5); Chloride 105 mmol/L (96-109); Chol/HDL Ratio 2.58 Ratio; Globulin 2.7 g/dL (1.6-3.3); Glucose 144 mg/dL (70-110); LDL Cholesterol,Calculated 44.2 mg/dL (0.0-131.0); Non-African American GFR(CKD) 52.4 (60.0-200.0); Potassium 4.5 mmol/L (3.5-5.5); Sodium 139 mmol/L (135-145); Total Protein 6.6 g/dL (6.2-8.2); VLDL Calculation 13.02 mg/dL (5.00-40.00)
== END ==
LOC: LABWHC1 09:51
PROVIDERS: ATTEND Internal Medicine Interventional Cardiology
DX: E78.2 Mixed hyperlipidemia (principal)
CPT/HCPCS: 36415; 80053; 80061

== ENCOUNTER → 2023-02-20 | Outpatient (CLI) | payer MEDICARE ==
[2023-02-20 15:10] LABS: ALT 23 U/L (10-49); AST 25 U/L (14-35); Chol/HDL Ratio 2.46 Ratio; LDL Cholesterol,Calculated 46.1 mg/dL (0.0-131.0); VLDL Calculation 19.76 mg/dL (5.00-40.00)
== END | disposition home or self-care (01) ==
LOC: LABWHC1 08:29
PROVIDERS: ATTEND Internal Medicine Interventional Cardiology
DX: E78.2 Mixed hyperlipidemia (principal)
CPT/HCPCS: 36415; 80061; 84450; 84460

== ENCOUNTER 2023-02-27 10:07 | Observation (INO) | payer MEDICARE ==
[2023-02-27] MEDS ORDERED: NITROGLYCERIN OINT 1 INCH/GM PACKET TOPICAL STA (10:28)
[2023-02-27] MEDS ORDERED: SODIUM CHLORIDE 0.9% 500 ML 500 ML IV STA (10:28)
[2023-02-27] MEDS ORDERED: ASPIRIN 81 MG PO STA (10:28)
[2023-02-27] MEDS ORDERED: ONDANSETRON 4 MG/2 ML VIAL IVP STA (10:29)
[2023-02-27] MEDS ORDERED: LORazepam 2 MG/ML INJ IV STA (10:29)
[2023-02-27 10:39] LABS: Basophils % (A) 0 %; Eosinophils # (A) 0.1 k/uL (0-0.7); Eosinophils % (A) 1 %; HCT 40.9 % (39.0-53.0); HGB 13.7 gm/dL (13.0-17.5); Lymphocytes # (A) 1.2 k/uL (1.0-4.8); Lymphocytes % (A) 9 %; MCH 28.8 pg (25.0-35.0); MCHC 33.5 g/dL (31.0-37.0); MCV 85.9 fL (80.0-100.0); Mean Platelet Volume 8.1; Monocytes # (A) 0.3 k/uL (0-1.0); Monocytes % (A) 2 %; Neutrophils # (A) 11.2 k/uL (1.3-7.7); Neutrophils % (A) 86 %; Platelet Count 260 k/uL (150-450); RBC 4.76 m/uL (4.30-5.90); RDW 14.8 % (11.5-15.5)
[2023-02-27 10:52] LABS: Albumin 4.5 g/dL (3.5-5.0); Calcium 9.8 mg/dL (8.4-10.2); Potassium 4.3 mmol/L (3.5-5.1); Total Bilirubin 1.1 mg/dL (0.2-1.3); Total Protein 7.5 g/dL (6.3-8.2)
--- NOTE | 2023-02-27 11:07 | XR ---
EXAMINATION TYPE: XR chest 2V DATE OF EXAM: 02/27/2023 COMPARISON: Chest x-ray November 06, 2021 HISTORY: Chest pain. TECHNIQUE: Frontal and lateral views of the chest are obtained. FINDINGS: Improved inspiration on current study. There is no focal air space opacity, pleural effusio n, or pneumothorax seen. The cardiac silhouette size is within normal limits. The osseous structur es are intact. Overlying EKG leads are redemonstrated. IMPRESSION: No acute cardiopulmonary process.
[2023-02-27 11:09] LABS: Prothrombin Time 10.9 sec (9.0-12.0)
--- NOTE | 2023-02-27 11:15 | ED ---
General Adult HPI - General Chief complaint: Chest Pain Stated complaint: Chest pain Time Seen by Provider: 02/27/23 10:10 Source: patient, RN notes reviewed, old records reviewed Mode of arrival: ambulatory Limitations: no limitations - History of Present Illness Initial comments: This is a 72-year-old male who has a past medical history significant for cardiac disease. Patient has had multiple stents placed in the past. Patient states last night when he went to bed he was having heartburn at 3:00 and when he woke up with severe chest pressure. Patient states she's also short of breath with it. Patient denies any radiation of the pain. Patient is a diaphoretic episode. Patient states he was very nauseous with it and he did vomit times one. Patient states in the past when he had his heart attack he did not have any nausea or vomiting. Patient denies any abdominal pain patient denies any diarrhea. Patient denies any recent fever chills or cough. - Related Data Home Medications Medication Instructions Recorded Confirmed Cinnamon Bark [Cinnamon] 1,000 mg PO BID 02/27/23 02/27/23 Empagliflozin/Metformin HCl 1 tab PO DAILY 02/27/23 02/27/23 [Synjardy Xr 25-1,000 mg Tablet] Metoprolol Succinate (ER) [Toprol 50 mg PO DAILY 02/27/23 02/27/23 Xl] Sildenafil Citrate 100 mg PO DIRECTED 02/27/23 02/27/23 Vitamin K2 100 mcg PO DAILY 02/27/23 02/27/23 Previous Rx's Medication Instructions Recorded Aspirin 81 mg PO DAILY tab 11/08/21 Atorvastatin [Lipitor] 80 mg PO HS #90 tab 11/08/21 lisinopriL [Zestril] 2.5 mg PO DAILY #90 tab 11/08/21 Allergies Allergy/AdvReac Type Severity Reaction Status Date / Time No Known Allergies Allergy Verified 02/27/23 11:40 Review of Systems ROS Statement: Those systems with pertinent positive or pertinent negative responses have been documented in the HPI. ROS Other: All systems not noted in ROS Statement are negative. Past Medical History Past Medical History: Diabetes Mellitus, Myocardial Infarction (MT) Additional Past Medical History / Comment(s): recently diagnosed with diabetes and new oral meds have been prescribed. diverticulitis Last Myocardial Infarction Date:: 11/06/21 History of Any Multi-Drug Resistant Organisms: None Reported Past Surgical History: Ear Surgery, Heart Catheterization With Stent, Hernia Repair Additional Past Surgical History / Comment(s): left arm bicep and tendon repair Past Anesthesia/Blood Transfusion Reactions: No Reported Reaction Date of Last Stent Placement:: 11/06/21 Past Psychological History: No Psychological Hx Reported Smoking Status: Current some day smoker Past Alcohol Use History: None Reported Past Drug Use History: Marijuana - Past Family History Mother Family Medical History: No Reported History General Exam - General Exam Comments Initial Comments: GENERAL: Patient is well-developed and well-nourished. Patient is nontoxic and well- hydrated and is in mild distress. ENT: Neck is soft and supple. No significant lymphadenopathy is noted. Oropharynx is clear. Moist mucous membranes. Neck has full range of motion without eliciting any pain. EYES: The sclera were anicteric and conjunctiva were pink and moist. Extraocular movements were intact and pupils were equal round and reactive to light. Eyelids were unremarkable. PULMONARY: Unlabored respirations. Good breath sounds bilaterally. No audible rales rhonchi or wheezing was noted. CARDIOVASCULAR: There is a regular rate and rhythm without any murmurs gallops or rubs. ABDOMEN: Soft and nontender with normal bowel sounds. SKIN: Skin is clear with no lesions or rashes and otherwise unremarkable. NEUROLOGIC: Patient is alert and oriented x3. Cranial nerves II through XII are grossly intact. Motor and sensory are also intact. Normal speech, volume and content. Symmetrical smile. MUSCULOSKELETAL: Normal extremities with adequate strength and full range of motion. No lower extremity swelling or edema. No calf tenderness. LYMPHATICS: No significant lymphadenopathy is noted PSYCHIATRIC: Patient is moderately anxious Limitations: no limitations Course Vital Signs 02/27/23 02/27/23 02/27/23 10:10 10:20 10:37 Temperature 98 F Pulse Rate 113 H 80 68 Respiratory 18 16 18 Rate Blood Pressure 92/55 125/54 O2 Sat by Pulse 98 97 100 Oximetry 02/27/23 02/27/23 11:44 11:59 Temperature Pulse Rate 65 65 Respiratory 18 16 Rate Blood Pressure 92/55 110/88 O2 Sat by Pulse 98 96 Oximetry Medical Decision Making - Medical Decision Making Patient's initial EKG was interpreted by myself shows a sinus rhythm at 75 bpm [place] interval is 191 QRSs 113 QT interval 382 QTC is 411. Patient's EKG shows Q waves in the inferior leads there is no ST segment elevation or depression. Because the patient significant chest pain and history I repeated an EKG and that was interpreted by myself as well. Shows a sinus rhythm at 63 bpm AZ inter lara 298 QRSs on 13 QT interval is 470 QTC is 413 per patient's EKG again shows Q waves in inferior leads but no ST segment elevation or depression. Was pt. sent in by a medical professional or institution (, PA, HOUSING CASE MANAGER, urgent care, hospital, or longterm...) When possible be specific @ -No Did you speak to anyone other than the patient for history (EMS, parent, family, police, friend...)? What history was obtained from this source @ -No Did you review nursing and triage notes (agree or disagree)? Why? @ -I reviewed and agree with nursing and triage notes Were old charts reviewed (outside hosp., previous admission, EMS record, old EKG, old radiological studies, urgent care reports/EKG's, longterm records)? Report findings @ -I reviewed prior lab work in prior visits on this patient. Differential Diagnosis (chest pain, altered mental status, abdominal pain women, abdominal pain men, vaginal bleeding, weakness, fever, dyspnea, syncope, headache, dizziness, GI bleed, back pain, seizure, CVA, palpatations, mental health, musculoskeletal)? @ -Differential Chest Pain: Stable Angina, Unstable Angina, STEMI, NSTEMI Aortic Dissection, Pneumothorax, Musculoskeletal, Esophageal Spasm GERD, Cholecystitis, Pancreatitis, Zoster, this is not meant to be an all-inclusive list. EKG interpreted by me (3pts min.). @ -As above X-rays interpreted by me (1pt min.). @ -Chest x-ray was interpreted by myself and showed no acute abnormality CT interpreted by me (1pt min.). @ -None done U/S interpreted by me (1pt. min.). @ -None done What testing was considered but not performed or refused? (CT, X-rays, U/S, labs)? Why? @ -None What meds were considered but not given or refused? Why? @ -None Did you discuss the management of the patient with other professionals (professionals i.e. , PA, HOUSING CASE MANAGER, lab, RT, psych nurse, social media marketing specialist, slot tag inserter, teacher, cash management officer, gearcase assembler)? Give summary @ -I spoke with Dr. Rodriguez he agreed to admit the patient admitted the patient wrote admitting orders Was smoking cessation discussed for >3mins.? @ -No Was critical care preformed (if so, how long)? @ -No Were there social determinants of health that impacted care today? How? (Homelessness, low income, unemployed, alcoholism, drug addiction, transportation, low edu. Level, literacy, decrease access to med. care, fdc, rehab)? @ -No Was there de-escalation of care discussed even if they declined (Discuss DNR or withdrawal of care, Hospice)? DNR status @ -No What co-morbidities impacted this encounter? (DM, HTN, Smoking, COPD, CAD, Cancer, CVA, ARF, Chemo, Hep., AIDS, mental health diagnosis, sleep apnea, morbid obesity)? @ -None Was patient admitted / discharged? Hospital course, mention meds given and route, prescriptions, significant lab abnormalities, going to OR and other pertinent info. @ -Patient had Nitropaste and aspirin when I went back and reevaluate him he did state that the chest pain was better. I spoke with Dr. Rodriguez he agreed to admit the patient and labs were normal x-ray is normal patient will be admitted I will consult cardiology and a repeat troponins on the floor Undiagnosed new problem with uncertain prognosis? @ -No Drug Therapy requiring intensive monitoring for toxicity (Heparin, Nitro, Insulin, Cardizem)? @ -No Were any procedures done? @ -No Diagnosis/symptom? @ -Chest pain Acute, or Chronic, or Acute on Chronic? @ -Acute Uncomplicated (without systemic symptoms) or Complicated (systemic symptoms)? @ -Complicated Side effects of treatment? @ -No Exacerbation, Progression, or Severe Exacerbation? @ -No Poses a threat to life or bodily function? How? (Chest pain, [place], MT, pneumonia, PE, COPD, DKA, ARF, appy, cholecystitis, CVA, Diverticulitis, Homicidal, Suicidal, threat to staff... and all critical care pts) @ -No - Lab Data Result diagrams: 02/27/23 10:19 02/27/23 10:19 Lab Results 02/27/23 02/27/23 02/27/23 Range/Units 10:19 10:19 10:19 WBC 13.0 H (3.8-10.6) k/uL RBC 4.76 (4.30-5.90) m/uL Hgb 13.7 (13.0-17.5) gm/dL Hct 40.9 (39.0-53.0) % MCV 85.9 (80.0-100.0) fL MCH 28.8 (25.0-35.0) pg MCHC 33.5 (31.0-37.0) g/dL RDW 14.8 (11.5-15.5) % Plt Count 260 (150-450) k/uL MPV 8.1 Neutrophils % 86 % Lymphocytes % 9 % Monocytes % 2 % Eosinophils % 1 % Basophils % 0 % Neutrophils # 11.2 H (1.3-7.7) k/uL Lymphocytes # 1.2 (1.0-4.8) k/uL Monocytes # 0.3 (0-1.0) k/uL Eosinophils # 0.1 (0-0.7) k/uL Basophils # 0.0 (0-0.2) k/uL PT 10.9 (9.0-12.0) sec INR 1.0 (<1.2) APTT 23.0 (22.0-30.0) sec Sodium 140 (137-145) mmol/L Potassium 4.3 (3.5-5.1) mmol/L Chloride 105 (98-107) mmol/L Carbon Dioxide 21 L (22-30) mmol/L Anion Gap 14 mmol/L BUN 19 (9-20) mg/dL Creatinine 1.37 H (0.66-1.25) mg/dL Est GFR (CKD-EPI)AfAm 60 (>60 ml/min/1.73 sqM) Est GFR (CKD-EPI)NonAf 52 (>60 ml/min/1.73 sqM) Glucose 171 H (74-99) mg/dL Calcium 9.8 (8.4-10.2) mg/dL Magnesium 2.0 (1.6-2.3) mg/dL Total Bilirubin 1.1 (0.2-1.3) mg/dL AST 30 (17-59) U/L ALT 28 (4-49) U/L Alkaline Phosphatase 78 (38-126) U/L Troponin I (0.000-0.034) ng/mL Total Protein 7.5 (6.3-8.2) g/dL Albumin 4.5 (3.5-5.0) g/dL 02/27/23 Range/Units 10:19 WBC (3.8-10.6) k/uL RBC (4.30-5.90) m/uL Hgb (13.0-17.5) gm/dL Hct (39.0-53.0) % MCV (80.0-100.0) fL MCH (25.0-35.0) pg MCHC (31.0-37.0) g/dL RDW (11.5-15.5) % Plt Count (150-450) k/uL MPV Neutrophils % % Lymphocytes % % Monocytes % % Eosinophils % % Basophils % % Neutrophils # (1.3-7.7) k/uL Lymphocytes # (1.0-4.8) k/uL Monocytes # (0-1.0) k/uL Eosinophils # (0-0.7) k/uL Basophils # (0-0.2) k/uL PT (9.0-12.0) sec INR (<1.2) APTT (22.0-30.0) sec Sodium (137-145) mmol/L Potassium (3.5-5.1) mmol/L Chloride (98-107) mmol/L Carbon Dioxide (22-30) mmol/L Anion Gap mmol/L BUN (9-20) mg/dL Creatinine (0.66-1.25) mg/dL Est GFR (CKD-EPI)AfAm (>60 ml/min/1.73 sqM) Est GFR (CKD-EPI)NonAf (>60 ml/min/1.73 sqM) Glucose (74-99) mg/dL Calcium (8.4-10.2) mg/dL Magnesium (1.6-2.3) mg/dL Total Bilirubin (0.2-1.3) mg/dL AST (17-59) U/L ALT (4-49) U/L Alkaline Phosphatase (38-126) U/L Troponin I <0.012 (0.000-0.034) ng/mL Total Protein (6.3-8.2) g/dL Albumin (3.5-5.0) g/dL Disposition Clinical Impression: Chest pain Disposition: ADMITTED IP TO THIS HOSP Referrals: Cara Arizmendi, DEYANIRA [REFERRING] - 1-2 days Time of Disposition: 12:34
[2023-02-27] MEDS ORDERED: NITROGLYCERIN SL TABS 0.4 MG TAB SUBLINGUAL PRN (12:52)
[2023-02-27] MEDS ORDERED: MAG HYDROX/AL HYDROX/SIMETH 30 ML, HYOSCYAMINE ELIXIR 10 ML, LIDOCAINE VISCOUS 2% 10 ML PO ONE ×3 (15:37)
--- NOTE | 2023-02-27 15:38 | P.HPIM ---
History of Present Illness H&P Date: 02/27/23 History of Presenting Illness: Patient is a very pleasant with a past medical history of CAD status post stenting x 3 with last stent 2021, hypertension, hyperlipidemia, type II [id number] diabetes mellitus, and nicotine dependence smoking one pa ck of cigarettes daily. He presented to the emergency department with a chief complaint of a tightness/pressure in his chest accompanied by significant heartburn, nausea, and shortness of breath. Patient reports these complaints were sudden onset awakening him from sleep around 3 AM. Patient reports his pain to his chest was a severe pressure that he has never experienced before. Patient states this did not feel similar to his previous heart attack as this pressure-like sensation was much more severe. Patient also denies ever having any heartburn or indigestion in the past. He denies having any dizziness, lightheadedness, palpitations, or experiencing any numbness/tingling/weakness/swelling in his extremities. Patient reports these symptoms resolved spontaneously prior to arrival to the hospital and that he has been symptom-free since admission. Patient reports he follows with a pulp maker, Dr. Mistry and was last seen in his office 2 months ago. Patient underwent full evaluation in the emergency department. EKG was completed showing normal sinus rhythm at 63 bpm with T-wave inversion in lead II and no ST abnormalities showing no signs of acute ischemia upon personal review and interpretation. Chest x-ray completed and reviewed, lungs appear clear showing no signs of acute cardiopulmonary process. Labs completed and reviewed. CBC and coagulation profile were unremarkable. BMP showing slight elevation of creatinine at 1.37 which appears to be at patient's baseline levels upon review and comparison of previous labs. Liver profile unremarkable. Troponin negative at less than 0.012. Discussed patient's history along with laboratory and imaging findings in detail with ED physician. Patient being admitted to observation unit under our services with consultation to cardiology. Patient's HEART score is 7, indicating a high risk for MACE of 50-65%. Review of systems: Pertinent positives and negatives as discussed in HPI, a complete review of systems was performed and all other systems are negative. Physical exam: Vital signs reviewed and stable. General: Nontoxic, no distress and appears stated age. Derm: Skin warm and dry, normal coloration for ethnicity. Head: Atraumatic, normocephalic and symmetric. Eyes: EOMs intact, no lid lag, and anicteric sclera Mouth: no lip lesions, mucus membranes moist Cardiovascular: regular rate and rhythm with normal S1S2, no murmur, positive posterior tibial pulses bilaterally, and cap refill < 2 seconds. Lungs: Respirations even, regular, and unlabored on room air. Lungs CTA bilaterally, no rhonchi, no rales, no wheezing, and no accessory muscle usage. Abdominal: soft, nontender to palpation, no guarding, no appreciable organomegaly Ext: ROM intact. No gross muscle atrophy, no edema, no contractures Neuro: Speech clear, face symmetrical and CN II-XII grossly intact with no noted focal neuro deficits Psych: Alert and oriented to person, place, time, and situation. Appropriate and pleasant affect. Assessment and Plan of Care: Chest pain, rule out acute coronary event History of coronary artery disease with stenting 3 Hypertension Hyperlipidemia -Patient's HEART score is 7, indicating a high risk for MACE of 50-65%. -Initial troponin negative at less than 0.012. Trend troponins every 3 hours 2 -EKG was completed showing normal sinus rhythm at 63 bpm with T-wave inversion in lead II and no ST abnormalities showing no signs of acute ischemia upon personal review and interpretation. -Chest x-ray completed and reviewed, lungs appear clear showing no signs of acute cardiopulmonary process. -Discussed patient's history along with laboratory and imaging findings in detail with ED physician. Patient being admitted to observation unit under our services with consultation to cardiology. -Cardiology consulted, appreciate further recommendations -Telemetry monitoring -Cardiac diet, NPO at midnight -Continue cardiac medication regimen with Aspirin 81 mg daily, atorvastatin 80 mg nightly, lisinopril 2.5 mg daily and metoprolol 50 mg daily -Lipid profile with a.m. labs. Zaw-ykprsks-vfiuuiukn diabetes mellitus -Patient placed on glycemic protocol with NovoLog sliding scale, may resume metformin/Empaglifozin upon discharge. Nicotine dependence -Recommend smoking cessation, nicotine patch provided 21 mg daily. The patient is admitted with an anticipated less than 2 midnight stay for evaluation of chest pain CODE STATUS: Full code DVT prophylaxis: Heparin Discussed with: Patient, patient's family member at bedside, RN, and ED physi karsten Anticipated discharge date: 24-[address]: Home Patient was seen independently by Nurse Practitioner. This document was prepared using [employer] dictation software. Please allow for errors in natural gas inspector while rare they do occur. I reviewed the documentation as provided by the LASHA above, who is the original author of this note. I agree with the documented assessment and plan, with the following changes: none Past Medical History Past Medical History: Diabetes Mellitus, Myocardial Infarction ([place]) Additional Past Medical History / Comment(s): recently diagnosed with diabetes and new oral meds have been prescribed. diverticulitis Last Myocardial Infarction Date:: 11/06/21 History of Any Multi-Drug Resistant Organisms: None Reported Past Surgical History: Ear Surgery, Heart Catheterization With Stent, Hernia Repair Additional Past Surgical History / Comment(s): left arm bicep and tendon repair Past Anesthesia/Blood Transfusion Reactions: No Reported Reaction Date of Last Stent Placement:: 11/06/21 Past Psychological History: No Psychological Hx Reported Smoking Status: Current some day smoker Past Alcohol Use History: None Reported Past Drug Use History: Marijuana - Past Family History Mother Family Medical History: No Reported History Medications and Allergies Home Medications Medication Instructions Recorded Confirmed Type Aspirin 81 mg PO DAILY tab 11/08/21 02/27/23 Rx Atorvastatin [Lipitor] 80 mg PO HS #90 tab 11/08/21 02/27/23 Rx lisinopriL [Zestril] 2.5 mg PO DAILY #90 tab 11/08/21 02/27/23 Rx Cinnamon Bark [Cinnamon] 1,000 mg PO BID 02/27/23 02/27/23 History Empagliflozin/Metformin HCl 1 tab PO DAILY 02/27/23 02/27/23 History [Synjardy Xr 25-1,000 mg Tablet] Metoprolol Succinate (ER) [Toprol 50 mg PO DAILY 02/27/23 02/27/23 History Xl] Sildenafil Citrate 100 mg PO DIRECTED 02/27/23 02/27/23 History Vitamin K2 100 mcg PO DAILY 02/27/23 02/27/23 History Allergies Allergy/AdvReac Type Severity Reaction Status Date / Time No Known Allergies Allergy Verified 02/27/23 11:40 Physical Exam Osteopathic Statement: *. No significant issues noted on an osteopathic structural exam other than those noted in the History and Physical/Consult. Vitals: Vital Signs Temp Pulse Resp BP Pulse Ox 02/27/23 11:59 65 16 110/88 96 02/27/23 11:44 65 18 92/55 98 02/27/23 10:37 68 18 125/54 100 02/27/23 10:20 80 16 92/55 97 02/27/23 10:10 98 F 113 H 18 98 Intake and Output 02/26/23 02/27/23 02/27/23 22:59 06:59 14:59 Other: Weight 90.718 kg Results CBC & Chem 7: 02/27/23 10:19 02/27/23 10:19 Labs: Abnormal Lab Results - Last 24 Hours (Table) 02/27/23 02/27/23 Range/Units 10:19 10:19 WBC 13.0 H (3.8-10.6) k/uL Neutrophils # 11.2 H (1.3-7.7) k/uL Carbon Dioxide 21 L (22-30) mmol/L Creatinine 1.37 H (0.66-1.25) mg/dL Glucose 171 H (74-99) mg/dL
[2023-02-27] MEDS ORDERED: DEXTROSE 50% SYRINGE 50 ML IVP PRN ×2 (16:16)
[2023-02-27 18:03] LABS: Glucose,Whole Blood 131 mg/dL (70-110)
[2023-02-27] MEDS: INSULIN ASPART (NovoLOG) 100 UNIT/ML VIAL SQ SCH ×2 (18:04→21:18)
[2023-02-27] MEDS: NICOTINE 21MG/24HR PATCH TRANSDERM SCH (18:04)
[2023-02-27] MEDS: NITROGLYCERIN OINT 1 INCH/GM PACKET TOPICAL SCH (18:05)
[2023-02-27] MEDS ORDERED: ATORVASTATIN 80 MG TAB PO SCH (21:00)
[2023-02-27 21:18] LABS: Glucose,Whole Blood 123 mg/dL (70-110)
[2023-02-27] MEDS: HEPARIN SODIUM,PORCINE/PF 5,000 UNIT/0.5 ML SYRINGE SQ SCH (21:30)
[2023-02-28] MEDS: NITROGLYCERIN OINT 1 INCH/GM PACKET TOPICAL SCH ×2 (01:12→05:59)
[2023-02-28 03:54] VITALS: RESP 18
[2023-02-28] MEDS: INSULIN ASPART (NovoLOG) 100 UNIT/ML VIAL SQ SCH (06:29)
[2023-02-28 06:30] LABS: Glucose,Whole Blood 153 mg/dL (70-110)
[2023-02-28] MEDS: NICOTINE 21MG/24HR PATCH TRANSDERM SCH (08:27)
[2023-02-28] MEDS: HEPARIN SODIUM,PORCINE/PF 5,000 UNIT/0.5 ML SYRINGE SQ SCH (08:27)
[2023-02-28 08:42] VITALS: BP 115/65; PULSE 60; TEMP 97.5
[2023-02-28] MEDS ORDERED: METOPROLOL SUCCINATE (ER) 50 MG TAB.ER.24H PO SCH (09:00)
[2023-02-28] MEDS ORDERED: ASPIRIN 325 MG TAB PO SCH (09:00)
[2023-02-28 12:06] LABS: Glucose,Whole Blood 113 mg/dL (70-110)
--- NOTE | 2023-02-28 12:29 | CA ---
Transthoracic Echo Report Name: Robert Miller Age: 72 Gender: M : 1950 Exam Date: 02/28/2023 11:18 Exam Location: [facility] Ht (in): 71 Wt (lb): 200 Ordering Physician: Shauna Chase Attending/Referring Phys: Account Development Executive Marco Menendez RDCS Procedure CPT: Indications: CP Cardiac Hx: CP Technical Quality: Fair Contrast 1: Total Dose (mL): Contrast 2: Total Dose (mL): MEASUREMENTS (Male / Female) Normal Values 2D ECHO LV Diastolic Diameter PLAX 5.3 cm 4.2 - 5.9 / 3.9 - 5.3 cm LV Systolic Diameter PLAX 4.2 cm LV Fractional Shortening PLAX 21.9 % IVS Diastolic Thickness 1.1 cm 0.6 - 1.0 / 0.6 - 0.9 cm IVS Systolic Thickness 1.7 cm LVPW Diastolic Thickness 1.1 cm 0.6 - 1.0 / 0.6 - 0.9 cm LVPW Systolic Thickness 1.6 cm LV Relative Wall Thickness 0.4 RV Internal Dim ED PLAX 4.1 cm LVOT Diameter 2.5 cm LA Systolic Diameter LX 3.4 cm 3.0 - 4.0 / 2.7 - 3.8 cm LV Diastolic Volume MOD BP 86.9 cm??? 67 - 155 / 56 - 104 cm??? LV Systolic Volume MOD BP 39.2 cm??? 22 - 58 / 19 - 49 cm??? LV Ejection Fraction MOD BP 54.9 % >= 55 % LV Stroke Volume MOD BP 47.7 cm??? LV Diastolic Volume MOD 4C 78.6 cm??? LV Systolic Volume MOD 4C 44.6 cm??? LV Ejection Fraction MOD 4C 43.3 % LV Stroke Volume MOD 4C 34.0 cm??? LV Diastolic Length 4C 6.9 cm LV Systolic Length 4C 6.2 cm LV Diastolic Volume MOD 2C 88.3 cm??? LV Systolic Volume MOD 2C 33.2 cm??? LV Ejection Fraction MOD 2C 62.4 % LV Stroke Volume MOD 2C 55.1 cm??? LV Diastolic Length 2C 7.5 cm LV Systolic Length 2C 6.5 cm Ascending Aorta Diameter 3.2 cm M-MODE Aortic Root Diameter MM 3.8 cm LA Systolic Diameter MM 3.3 cm LA Ao Ratio MM 0.9 MV E Point Septal Separation 1.4 cm AV Cusp Separation MM 1.7 cm DOPPLER AV Peak Velocity 100.8 cm/s AV Peak Gradient 4.1 mmHg MV Deceleration [place] 713.9 cm/s??? Mitral E Point Velocity 85.2 cm/s Mitral A Point Velocity 61.6 cm/s Mitral E to A Ratio 1.4 MV Deceleration Time 119.4 ms MV E' Velocity 6.5 cm/s Mitral E to MV E' Ratio 13.0 TR Peak Velocity 99.1 cm/s TR Peak Gradient 3.9 mmHg Right Ventricular Systolic Press 8.9 mmHg PV Peak Velocity 105.1 cm/s PV Peak Gradient 4.4 mmHg FINDINGS Left Ventricle Left ventricular ejection fraction is estimated at 50-55 %. Normal basal systolic function. Right Ventricle Normal right ventricular size and function. Right Atrium Normal right atrial size. Left Atrium Normal left atrial size. Mitral Valve Mitral valve thickened. Trace to mild mitral regurgitation. Aortic Valve Trileaflet aortic valve. Focal thickening of the aortic valve cusps. Tricuspid Valve Trace to mild tricuspid regurgitation. Pulmonic Valve Trace to mild pulmonic regurgitation. Pericardium Normal pericardium. No pericardial effusion. Aorta Normal size aortic root and proximal ascending aorta. CONCLUSIONS Left ventricular systolic function is normal Previewed by: Dr. Ken Mistry MD (Electronically Signed) Final Date: 28 February 2023 12:28
[2023-02-28 12:33] LABS: Chol/HDL Ratio 2.39 Ratio; LDL Cholesterol,Calculated 53.6 mg/dL (0.0-131.0); VLDL Calculation 15.74 mg/dL (5.00-40.00)
--- NOTE | 2023-02-28 12:36 | P.CRDCN ---
History of Present Illness Consult date: 02/28/23 History of present illness: Patient is a pleasant 72-year-old gentleman witha past medical history of CAD status post stenting x 3 with last stent 2021, hypertension, hyperlipidemia, type II [id number] diabetes mellitus, and nicotine dependence smoking one pack of cigarettes daily. We've been consulted to see the patient for chest pain. Patient follows with Dr. Albarado in the office. Patient reports he presented to the ER with complaints of chest tightness and pressure accompanied by significant heartburn nausea, vomiting, and shortness of breath. Patient reports he took his Sildenafil morning. He then was evening. After he had dizziness did have episodes of heartburn, he reports he also felt lightheaded and nauseous. He vomited x1. He states his previous heart attack he had no vomiting. He denied palpitations, experience any numbness tingling in his extremities. His pain radiating into the jaw. He states his symptoms resolved shortly before arriving to the ER. Have not returned. His EKG showed normal sinus rhythm with no signs of acute ischemia. Chest x-ray was negative for acute cardiopulmonary process. Troponins were negative 3. Chest pain sounds to be atypical and noncardiac in nature will, obtain a 2-D echocardiogram to rule out abnormal wall motions or LV dysfunction. Review of Systems REVIEW OF SYSTEMS At the time of my exam: CONSTITUTIONAL: Denies fever or chills. EYES: Negative for vision changes ENT: Negative for hearing loss CARDIOVASCULAR: Reports chest pain prior to arrival at ER, Denies shortness of breath, diaphoresis, orthopnea, PND or palpitations. VASCULAR: Denies edema RESPIRATORY: Denies cough. GASTROINTESTINAL: Denies abdominal pain, diarrhea, constipation, nausea or vomiting. MUSCULOSKELETAL: Denies myalgias. NEUROLOGIC: Denies numbness, tingling, headache or weakness. ENDOCRINE: Denies fatigue, weight change, polydipsia or polyurina. GENITOURINARY: Denies burning, hematuria or urgency with micturation. HEMATOLOGIC: Denies history of anemia or bleeding. DERMATOLOGY: Denies rash or skin sores PSYCH: Negative for depression or hallucinations. Past Medical History Past Medical History: Diabetes Mellitus, Myocardial Infarction ([place]) Additional Past Medical History / Comment(s): recently diagnosed with diabetes and new oral meds have been prescribed. diverticulitis Last Myocardial Infarction Date:: 11/06/21 History of Any Multi-Drug Resistant Organisms: None Reported Past Surgical History: Ear Surgery, Heart Catheterization With Stent, Hernia Repair Additional Past Surgical History / Comment(s): left arm bicep and tendon repair Past Anesthesia/Blood Transfusion Reactions: No Reported Reaction Date of Last Stent Placement:: 11/06/21 Past Psychological History: No Psychological Hx Reported Smoking Status: Current some day smoker Past Alcohol Use History: None Reported Past Drug Use History: Marijuana - Past Family History Mother Family Medical History: No Reported History Medications and Allergies Home Medications Medication Instructions Recorded Confirmed Type Aspirin 81 mg PO DAILY tab 11/08/21 02/27/23 Rx Atorvastatin [Lipitor] 80 mg PO HS #90 tab 11/08/21 02/27/23 Rx lisinopriL [Zestril] 2.5 mg PO DAILY #90 tab 11/08/21 02/27/23 Rx Cinnamon Bark [Cinnamon] 1,000 mg PO BID 02/27/23 02/27/23 History Empagliflozin/Metformin HCl 1 tab PO DAILY 02/27/23 02/27/23 History [Synjardy Xr 25-1,000 mg Tablet] Metoprolol Succinate (ER) [Toprol 50 mg PO DAILY 02/27/23 02/27/23 History Xl] Sildenafil Citrate 100 mg PO DIRECTED 02/27/23 02/27/23 History Vitamin K2 100 mcg PO DAILY 02/27/23 02/27/23 History Allergies Allergy/AdvReac Type Severity Reaction Status Date / Time No Known Allergies Allergy Verified 02/27/23 11:40 Physical Exam Vitals: Vital Signs Temp Pulse Pulse Resp BP BP Pulse Ox 02/28/23 08:00 60 18 96 02/28/23 07:00 97.5 F L 60 18 115/65 98 02/28/23 03:29 99.2 F 53 L 18 138/63 96 02/28/23 01:52 74 16 02/27/23 21:30 74 16 02/27/23 20:26 98.3 F 74 16 105/55 98 02/27/23 14:32 99.0 F 58 L 17 118/53 97 02/27/23 13:05 66 16 112/51 97 02/27/23 12:53 97 Intake and Output 02/27/23 02/28/23 02/28/23 22:59 06:59 14:59 Other: Voiding Method Toilet Toilet Toilet # Voids 1 2 Weight 90.718 kg At the time of my exam General: The patient is awake and alert, in no distress, and does not appear acutely ill. Skin: Skin is warm and dry and no rashes or lesions are noted. Eye: Pupils are equal, round and reactive to light, extra-ocular movements are intact; there is normal conjunctiva bilaterally. Ears, nose, mouth and throat: There are moist mucous membranes and no oral lesions. Neck: The neck is supple, there is no tenderness or JVD. Cardiovascular: There is irregular regular rate and rhythm. No murmur, rub or gallop is appreciated. Respiratory: Lungs are clear to auscultation, respirations are non-labored, breath sounds are equal. Gastrointestinal: Soft, non-distended, non-tender abdomen without masses or organomegaly noted. There is no rebound or guarding present. Bowel sounds are unremarkable. Back: There is no tenderness to palpation in the midline. There is no obvious deformity. Musculoskeletal: Normal ROM, no tenderness, There is no pedal edema. There is n o calf tenderness or swelling. Extremities: Mild bilateral pitting edema Vascular: Femoral pulse is normal. Posterior tibial pulses are normal .Dorsalis pedis is palpable. Neurological: CN II-XII intact. There are no obvious motor or sensory deficits. Speech is normal. Psychiatric: Cooperative, appropriate mood & affect, normal judgment Results 02/27/23 10:19 02/27/23 10:19 Cardiac Enzymes 02/27/23 02/27/23 Range/Units 14:54 17:52 Troponin I <0.012 <0.012 (0.000-0.034) ng/mL Current Medications Generic Name Dose Route Start Last Admin Trade Name Freq PRN Reason Stop Dose Admin Aspirin 325 mg 02/28/23 09:00 02/28/23 08:28 Aspirin 325 Mg Tab PO 325 mg DAILY HERON Administration Atorvastatin Calcium 80 mg 02/27/23 21:00 02/27/23 21:30 Atorvastatin 80 Mg Tab PO 80 mg HS HERON Administration Dextrose/Water 25 ml 02/27/23 16:16 Dextrose 50% Syringe 50 Ml IVP PER PROTOCOL PRN Hypoglycemia Protocol Dextrose/Water 50 ml 02/27/23 16:16 Dextrose 50% Syringe 50 Ml IVP PER PROTOCOL PRN Hypoglycemia Protocol Heparin Sodium (Porcine) 5,000 unit 02/28/23 00:00 02/28/23 08:27 Heparin Sodium,Porcine/Pf 5,000 Unit/0.5 Ml Syringe SQ 5,000 unit Q8HR HERON Administration Insulin Aspart 0 unit 02/27/23 17:30 02/28/23 06:29 Insulin Aspart (Novolog) 100 Unit/Ml Vial SQ Not Given ACHS HERON Protocol Lisinopril 2.5 mg 02/28/23 09:00 Lisinopril 2.5 Mg Tab PO DAILY HERON Metoprolol Succinate 50 mg 02/28/23 09:00 02/28/23 08:27 Metoprolol Succinate (Er) 50 Mg Tab.Er.24h PO 50 mg DAILY HERON Administration Nicotine 1 patch 02/27/23 16:15 02/28/23 08:27 Nicotine 21mg/24hr Patch TRANSDERM 1 patch DAILY HERON Administration Nitroglycerin 0.4 mg 02/27/23 12:52 Nitroglycerin Sl Tabs 0.4 Mg Tab SUBLINGUAL Q5M PRN Chest Pain Nitroglycerin 1 inch 02/27/23 18:00 02/28/23 05:59 Nitroglycerin Oint 1 Inch/Gm Packet TOPICAL Not Given Q6HR HERON Intake and Output 02/27/23 02/28/23 02/28/23 22:59 06:59 14:59 Other: Voiding Method Toilet Toilet Toilet # Voids 1 2 Weight 90.718 kg 02/27/23 10:19 02/27/23 10:19 Assessment and Plan Assessment: Atypical Chest pain rule out acute coronary artery syndrome History of CAD with prior stenting 3 Hypertension Hyperlipidemia Plan: Obtain a 2-D echocardiogram to evaluate wall motion and LV function. Continue with all current cardiac medications Continue with telemetry monitoring Further recommendations based on clinical course The above impression and plan of care have been discussed and directed by the signing physician. Shauna Chase, nurse practitioner, acting as scribe for signing physician.
--- NOTE | 2023-02-28 13:49 | P.DS ---
Providers Date of admission: 02/27/23 13:46 Expected date of discharge: 02/28/23 Attending physician: Vernon Rodriguez MD Consults: 02/27/23 12:53 Consult Physician Urgent Consulting Provider: [facility] Consult Reason/Comments: Chest pain Do you want consulting provider notified?: Yes Primary care physician: Jayant Lorenzana Hospital Course: Discharge Diagnosis: Chest pain, acute coronary event ruled out. History of coronary artery disease with stenting 3. Hypertension. Hyperlipidemia. Hyu-jkzblbq-evfpirfxt diabetes mellitus. Hemoglobin A1c 6.9%. Patient to resume metformin/Empaglifozin upon discharge. Nicotine dependence. Recommend smoking cessation, nicotine patch provided 21 mg daily. Hospital Course: Patient is a very pleasant with a past medical history of CAD status post stenting x 3 with last stent 2021, hypertension, hyperlipidemia, type II jlh-suahjgc-ipokjqaud diabetes mellitus, and nicotine dependence smoking one pack of cigarettes daily. He presented to the emergency department with a chief complaint of a tightness/pressure in his chest accompanied by significant heartburn, nausea, and shortness of breath. Patient reports these complaints were sudden onset awakening him from sleep around 3 AM. Patient reports his pain to his chest was a severe pressure that he has never experienced before. Patient states this did not feel similar to his previous heart attack as this pressure-like sensation was much more severe. Patient also denies ever having any heartburn or indigestion in the past. He denies having any dizziness, lightheadedness, palpitations, or experiencing any numbness/tingling/weakness/swelling in his extremities. Patient reports these symptoms resolved spontaneously prior to arrival to the hospital and that he has been symptom-free since admission. Patient reports he follows with a integrated circuits inspector, Dr. Mistry and was last seen in his office 2 months ago. Patient underwent full evaluation in the emergency department. EKG was completed showing normal sinus rhythm at 63 bpm with T-wave inversion in lead II and no ST abnormalities showing no signs of acute ischemia upon personal review and interpretation. Chest x-ray completed and reviewed, lungs appear clear showing no signs of acute cardiopulmonary process. Labs completed and reviewed. CBC and coagulation profile were unremarkable. BMP showing slight elevation of creatinine at 1.37 which appears to be at patient's baseline levels upon review and comparison of previous labs. Liver profile unremarkable. Troponin negative at less than 0.012. Discussed patient's history along with laboratory and imaging findings in detail with ED physician. Patient being admitted to observation unit under our services with consultation to cardiology. Patient's HEART score is 7, indicating a high risk for MACE of 50-65%. Troponins were trended all negative at less than 0.0123 draws. Patient has had no further episodes of chest pain and/or discomfort. Patient later admitting that prior to this event earlier in the day taking 2 Viagra's instead of prescribed 1. Cardiology evaluated and ordered for echocardiogram. Echocardiogram completed revealing normal EF of 50-55% with no significant valvular or structural abnormalities reported. Cardiology clearing patient from cardiac perspective. Patient is medically stable at this time. He remains free from any chest pain and/or discomfort. Patient to follow up outpatient with PCP on Thursday and with cardiology in 1 week. Physical exam: Vital signs reviewed and stable. General: Nontoxic, no distress and appears stated age. Derm: Skin warm and dry, normal coloration for ethnicity. Head: Atraumatic, normocephalic and symmetric. Eyes: EOMs intact, no lid lag, and anicteric sclera Mouth: no lip lesions, mucus membranes moist Cardiovascular: regular rate and rhythm with normal S1S2, no murmur, positive posterior tibial pulses bilaterally, and cap refill < 2 seconds. Lungs: Respirations even, regular, and unlabored on room air. Lungs CTA bilaterally, no rhonchi, no rales, no wheezing, and no accessory muscle usage. Abdominal: soft, nontender to palpation, no guarding, no appreciable organomegaly Ext: ROM intact. No gross muscle atrophy, no edema, no contractures Neuro: Speech clear, face symmetrical and CN II-XII grossly intact with no noted focal neuro deficits Psych: Alert and oriented to person, place, time, and situation. Appropriate and pleasant affect. A total of 34 minutes of time were spent preparing this complex discharge summary. Pt was discharged on 02/28/23 at 1:29 PM Patient was seen independently by Nurse Practitioner. This document was prepared using [employer] dictation software. Please allow for errors in programmable logic controller assembler while rare they do occur. Hilario Diaz NP rendered care for this patient independently, reviewed the findings and plan as documented in the note above. I did not physically speak with or examine the patient on this date. Patient Condition at Discharge: Stable Plan - Discharge Summary Discharge Rx Participant: Yes New Discharge Prescriptions: New Nicotine 21Mg/24Hr Patch [Habitrol] 1 patch TRANSDERM DAILY 30 Days #30 patch Continue Atorvastatin [Lipitor] 80 mg PO HS #90 tab Metoprolol Succinate (ER) [Toprol XL] 50 mg PO DAILY Cinnamon Bark [Cinnamon] 1,000 mg PO BID Aspirin 81 mg PO DAILY tab lisinopriL [Zestril] 2.5 mg PO DAILY #90 tab Sildenafil Citrate 100 mg PO DIRECTED Empagliflozin/Metformin HCl [Synjardy Xr 25-1,000 mg Tablet] 1 tab PO DAILY Vitamin K2 100 mcg PO DAILY Discharge Medication List Aspirin 81 mg PO DAILY tab 11/08/21 [Rx] Atorvastatin [Lipitor] 80 mg PO HS #90 tab 11/08/21 [Rx] lisinopriL [Zestril] 2.5 mg PO DAILY #90 tab 11/08/21 [Rx] Cinnamon Bark [Cinnamon] 1,000 mg PO BID 02/27/23 [History] Empagliflozin/Metformin HCl [Synjardy Xr 25-1,000 mg Tablet] 1 tab PO DAILY 02/27/23 [History] Metoprolol Succinate (ER) [Toprol XL] 50 mg PO DAILY 02/27/23 [History] Sildenafil Citrate 100 mg PO DIRECTED 02/27/23 [History] Vitamin K2 100 mcg PO DAILY 02/27/23 [History] Nicotine 21Mg/24Hr Patch [Habitrol] 1 patch TRANSDERM DAILY 30 Days #30 patch 02/28/23 [Rx] Follow up Appointment(s)/Referral(s): Cara Arizmendi PAC [REFERRING] - 1-2 days Ken Mistry MD [STAFF PHYSICIAN] - 1 Week Patient Instructions/Handouts: Chest Pain (DC) Activity/Diet/Wound Care/Special Instructions: Activity: As tolerated. Take breaks as needed. Diet: Heart healthy and carb consistent diet. Avoid salts, or foods with hidden salts such as canned or boxed foods and frozen dinners. Extra salt makes your heart work harder and traps the fluid in your body for longer. Special Instructions: Take all of your medications as directed and remember to keep all of your doctor's appointments and follow-up as needed. Thank you for allowing us to participate in your care, it was truly a pleasure having you for our patient!!! Discharge Disposition: HOME SELF-CARE
== END 2023-02-28 14:28 | disposition home or self-care (01) ==
LOC: EC 10:07 → 6NMEDSUR 13:46
PROVIDERS: ADMIT Internal Medicine; ATTEND Internal Medicine
DX: R07.89 Other chest pain (principal); R11.2 Nausea with vomiting, unspecified; R06.02 Shortness of breath; R12 Heartburn; I25.10 Atherosclerotic heart disease of native coronary artery without angina pectoris; I10 Essential (primary) hypertension; E78.5 Hyperlipidemia, unspecified; E11.9 Type 2 diabetes mellitus without complications; F17.210 Nicotine dependence, cigarettes, uncomplicated; Z71.6 Tobacco abuse counseling; Z95.5 Presence of coronary angioplasty implant and graft; I25.2 Old myocardial infarction; Z79.84 Long term (current) use of oral hypoglycemic drugs; Z79.82 Long term (current) use of aspirin; Z79.899 Other long term (current) drug therapy; Z87.19 Personal history of other diseases of the digestive system; Z98.890 Other specified postprocedural states
CPT/HCPCS: 96372 ×2; 96361; 96374; 96375; 99285; 36415; 94760; 93005; 93306; 80061; 80053; 83735; 84484; 85025; 85610; 85730; 83036; 71046; G0378 ×2; S4990 ×2; J2060; J2405; J1644 ×2

== ENCOUNTER 2023-08-23 18:55 | Observation (INO) | payer MEDICARE ==
[2023-08-23 19:53] LABS: Anisocytosis Slight; Basophils # (A) 0.1 k/uL (0-0.2); Basophils % (A) 1 %; Eosinophils # (A) 0.4 k/uL (0-0.7); Eosinophils % (A) 6 %; HCT 22.4 % (39.0-53.0); Hypochromasia Marked; Lymphocytes # (A) 1.7 k/uL (1.0-4.8); Lymphocytes % (A) 25 %; MCH 22.4 pg (25.0-35.0); MCHC 30.6 g/dL (31.0-37.0); MCV 73.1 fL (80.0-100.0); Mean Platelet Volume 7.9; Microcytosis Moderate; Monocytes # (A) 0.5 k/uL (0-1.0); Monocytes % (A) 7 %; Neutrophils # (A) 4.1 k/uL (1.3-7.7); Neutrophils % (A) 60 %; Platelet Count 322 k/uL (150-450); RBC 3.06 m/uL (4.30-5.90); RDW 16.2 % (11.5-15.5); WBC 6.8 k/uL (3.8-10.6)
[2023-08-23 20:04] LABS: ALT 14 U/L (4-49); AST 23 U/L (17-59); African American GFR (CKD) 53 (>60 ml/min/1.73 sqM); Albumin 3.9 g/dL (3.5-5.0); Alkaline Phosphatase 94 U/L (38-126); Anion Gap 12 mmol/L; Blood Urea Nitrogen 22 mg/dL (9-20); Calcium 8.6 mg/dL (8.4-10.2); Carbon Dioxide 21 mmol/L (22-30); Chloride 105 mmol/L (98-107); Glucose 166 mg/dL (74-99); Non-African American GFR(CKD) 46 (>60 ml/min/1.73 sqM); Potassium 4.3 mmol/L (3.5-5.1); Sodium 138 mmol/L (137-145); Total Bilirubin 0.5 mg/dL (0.2-1.3); Total Protein 7.1 g/dL (6.3-8.2)
[2023-08-23 20:10] LABS: HGB 6.9 gm/dL (13.0-17.5)
[2023-08-23 20:16] LABS: Partial Thromboplastin Time 23.2 sec (22.0-30.0); Prothrombin Time 10.5 sec (9.0-12.0)
--- NOTE | 2023-08-23 21:05 | ED ---
General Adult HPI - General Chief complaint: Recheck/Abnormal Lab/Rx Stated complaint: Abn labs Time Seen by Provider: 08/23/23 19:05 Source: patient Mode of arrival: ambulatory Limitations: no limitations - History of Present Illness Initial comments: 72-year-old male with past medical history of cardio vascular disease who presents emergency department reporting reporting abnormal labs. He was called in by his primary care today for a low hemoglobin count. States his labs were drawn on Thursday by his orthopedist. He is supposed to have a knee replacement on the . His primary care noticed that his hemoglobin was 6.2 and called him to come into the emergency room. He denies any active bleeding. No black or bloody stools. No history of anemia. Does not take iron supplements. Has never required a transfusion. He admits to slight fatigue. He does not take a blood thinner. No other alleviating, Perceptin or modifying factors - Related Data Home Medications Medication Instructions Recorded Confirmed Cinnamon Bark [Cinnamon] 2,000 mg PO DAILY 02/27/23 08/23/23 Metoprolol Succinate (ER) [Toprol 50 mg PO DAILY 02/27/23 08/23/23 XL] Sildenafil Citrate 100 mg PO DAILY PRN 02/27/23 08/23/23 Vitamin K2 100 mcg PO DAILY 02/27/23 08/23/23 Omeprazole 40 mg PO DAILY 08/23/23 08/23/23 Previous Rx's Medication Instructions Recorded Aspirin 81 mg PO DAILY tab 11/08/21 Atorvastatin [Lipitor] 80 mg PO HS #90 tab 11/08/21 lisinopriL [Zestril] 2.5 mg PO DAILY #90 tab 11/08/21 Allergies Allergy/AdvReac Type Severity Reaction Status Date / Time No Known Allergies Allergy Verified 08/23/23 20:35 Review of Systems ROS Statement: Those systems with pertinent positive or pertinent negative responses have been documented in the HPI. ROS Other: All systems not noted in ROS Statement are negative. Past Medical History Past Medical History: Diabetes Mellitus, Myocardial Infarction ([place]) Additional Past Medical History / Comment(s): recently diagnosed with diabetes and new oral meds have been prescribed. diverticulitis Last Myocardial Infarction Date:: 11/06/21 History of Any Multi-Drug Resistant Organisms: None Reported Past Surgical History: Ear Surgery, Heart Catheterization With Stent, Hernia Repair Additional Past Surgical History / Comment(s): left arm bicep and tendon repair Past Anesthesia/Blood Transfusion Reactions: No Reported Reaction Date of Last Stent Placement:: 11/06/21 Past Psychological History: No Psychological Hx Reported Smoking Status: Current some day smoker Past Alcohol Use History: None Reported Past Drug Use History: Marijuana - Past Family History Mother Family Medical History: No Reported History General Exam Limitations: no limitations General appearance: alert, in no apparent distress Head exam: Present: atraumatic, normocephalic, normal inspection Eye exam: Present: normal appearance, PERRL, EOMI. Absent: scleral icterus, conjunctival injection, periorbital swelling ENT exam: Present: normal exam, mucous membranes moist Neck exam: Present: normal inspection. Absent: tenderness, meningismus, lymphadenopathy Respiratory exam: Present: normal lung sounds bilaterally. Absent: respiratory distress, wheezes, rales, rhonchi, stridor Cardiovascular Exam: Present: regular rate, normal rhythm, normal heart sounds. Absent: systolic murmur, diastolic murmur, rubs, gallop, clicks GI/Abdominal exam: Present: soft, normal bowel sounds. Absent: distended, tenderness, guarding, rebound, rigid Extremities exam: Present: normal inspection, full ROM, normal capillary refill. Absent: tenderness, pedal edema, joint swelling, calf tenderness Back exam: Present: normal inspection Neurological exam: Present: alert, oriented X3, CN II-XII intact Psychiatric exam: Present: normal affect, normal mood Skin exam: Present: warm, dry, intact, normal color. Absent: rash Course Vital Signs 08/23/23 08/23/23 08/23/23 19:01 21:31 21:49 Temperature 98.4 F 98.1 F 98.6 F Pulse Rate 73 69 67 Respiratory 18 18 18 Rate Blood Pressure 127/57 124/53 123/53 O2 Sat by Pulse 98 98 Oximetry 08/23/23 22:09 Temperature 98.9 F Pulse Rate 69 Respiratory 18 Rate Blood Pressure 126/49 O2 Sat by Pulse Oximetry Medical Decision Making - Medical Decision Making Was pt. sent in by a medical professional or institution (, PA, [facility], urgent care, hospital, or half-way...) When possible be specific @ -Sent in by Dr. Hannon office Did you speak to anyone other than the patient for history (EMS, parent, family, police, friend...)? What history was obtained from this source @ -Spoke with PA at Dr. Hannon office Did you review nursing and triage notes (agree or disagree)? Why? @ -I reviewed and agree with nursing and triage notes Were old charts reviewed (outside hosp., previous admission, EMS record, old EKG, old radiological studies, urgent care reports/EKG's, half-way records)? Report findings @ -I reviewed the patient's blood work from Thursday Differential Diagnosis (chest pain, altered mental status, abdominal pain women, abdominal pain men, vaginal bleeding, weakness, fever, dyspnea, syncope, headache, dizziness, GI bleed, back pain, seizure, CVA, palpatations, mental health, musculoskeletal)? @ -Differential Esophageal varices, aortoenteric fistula, Nguyen-Gallego, gastritis, peptic ulcer disease, diverticulosis, inflammatory bowel disease, hemorrhoids, fissure, colitis, malignancy, Meckels diverticulum, this is not meant to be an all- inclusive list. EKG interpreted by me (3pts min.). @ -Not done X-rays interpreted by me (1pt min.). @ -None done CT interpreted by me (1pt min.). @ -None done U/S interpreted by me (1pt. min.). @ -None done What testing was considered but not performed or refused? (CT, X-rays, U/S, labs)? Why? @ -None What meds were considered but not given or refused? Why? @ -None Did you discuss the management of the patient with other professionals (professionals i.e. , PA, [facility], lab, RT, psych nurse, sr. social media & mobile manager, physician office nurse, teacher, airframe technical officer, pillowcase sewer)? Give summary @ -Spoke with Dr. Baron as the patient is occult positive Was smoking cessation discussed for >3mins.? @ -No Was critical care preformed (if so, how long)? @ -Yes, 35 minutes for transfusion of blood products Were there social determinants of health that impacted care today? How? (Homelessness, low income, unemployed, alcoholism, drug addiction, transportation, low edu. Level, literacy, decrease access to med. care, correction, rehab)? @ -No Was there de-escalation of care discussed even if they declined (Discuss DNR or withdrawal of care, Hospice)? DNR status @ -No What co-morbidities impacted this encounter? (DM, HTN, Smoking, COPD, CAD, Cancer, CVA, ARF, Chemo, Hep., AIDS, mental health diagnosis, sleep apnea, morbid obesity)? @ -Coronary artery disease Was patient admitted / discharged? Hospital course, mention meds given and route, prescriptions, significant lab abnormalities, going to OR and other pertinent info. @ -Arrival patient was placed in room 5. History and physical exam is performed. Hemoglobin is rechecked and is 6.9. He will require transfusion. I did perform an occult which is positive. Spoke with Dr. Gerardo who is agreeable to consult on the patient. Spoke with Dr. Goldberg who will admit the patient. Patient was agreeable to admission and transfusion. He is awaiting a bed on the floor in stable condition Undiagnosed new problem with uncertain prognosis? @ -Yes Drug Therapy requiring intensive monitoring for toxicity (Heparin, Nitro, Insulin, Cardizem)? @ -blood products Were any procedures done? @ -No Diagnosis/symptom? @ -Acute microcytic anemia, occult positive Acute, or Chronic, or Acute on Chronic? @ -Acute Uncomplicated (without systemic symptoms) or Complicated (systemic symptoms)? @ -Complicated Side effects of treatment? @ -No Exacerbation, Progression, or Severe Exacerbation? @ -No Poses a threat to life or bodily function? How? (Chest pain, [place], [place], pneumonia, PE, COPD, DKA, ARF, appy, cholecystitis, CVA, Diverticulitis, Homicidal, Suicidal, threat to staff... and all critical care pts) @ -Yes patient is severely anemic - Lab Data Result diagrams: 08/23/23 19:08 08/23/23 19:08 Lab Results 08/23/23 08/23/23 08/23/23 Range/Units 19:08 19:08 19:08 WBC 6.8 (3.8-10.6) k/uL RBC 3.06 L (4.30-5.90) m/uL Hgb 6.9 L* (13.0-17.5) gm/dL Hct 22.4 L (39.0-53.0) % MCV 73.1 L (80.0-100.0) fL MCH 22.4 L (25.0-35.0) pg MCHC 30.6 L (31.0-37.0) g/dL RDW 16.2 H (11.5-15.5) % Plt Count 322 (150-450) k/uL MPV 7.9 Neutrophils % 60 % Lymphocytes % 25 % Monocytes % 7 % Eosinophils % 6 % Basophils % 1 % Neutrophils # 4.1 (1.3-7.7) k/uL Lymphocytes # 1.7 (1.0-4.8) k/uL Monocytes # 0.5 (0-1.0) k/uL Eosinophils # 0.4 (0-0.7) k/uL Basophils # 0.1 (0-0.2) k/uL Hypochromasia Marked Anisocytosis Slight Microcytosis Moderate PT 10.5 (9.0-12.0) sec INR 1.0 (<1.2) APTT 23.2 (22.0-30.0) sec Sodium 138 (137-145) mmol/L Potassium 4.3 (3.5-5.1) mmol/L Chloride 105 (98-107) mmol/L Carbon Dioxide 21 L (22-30) mmol/L Anion Gap 12 mmol/L BUN 22 H (9-20) mg/dL Creatinine 1.52 H (0.66-1.25) mg/dL Est GFR (CKD-EPI)AfAm 53 (>60 ml/min/1.73 sqM) Est GFR (CKD-EPI)NonAf 46 (>60 ml/min/1.73 sqM) Glucose 166 H (74-99) mg/dL Calcium 8.6 (8.4-10.2) mg/dL Magnesium 2.0 (1.6-2.3) mg/dL Total Bilirubin 0.5 (0.2-1.3) mg/dL AST 23 (17-59) U/L ALT 14 (4-49) U/L Alkaline Phosphatase 94 (38-126) U/L Troponin I (0.000-0.034) ng/mL Total Protein 7.1 (6.3-8.2) g/dL Albumin 3.9 (3.5-5.0) g/dL Stool Occult Blood (Negative) Blood Type Blood Type Confirm Blood Type Recheck Bld Type Recheck Status Antibody Screen Crossmatch Spec Expiration Date 08/23/23 08/23/23 08/23/23 Range/Units 19:08 19:15 19:19 WBC (3.8-10.6) k/uL RBC (4.30-5.90) m/uL Hgb (13.0-17.5) gm/dL Hct (39.0-53.0) % MCV (80.0-100.0) fL MCH (25.0-35.0) pg MCHC (31.0-37.0) g/dL RDW (11.5-15.5) % Plt Count (150-450) k/uL MPV Neutrophils % % Lymphocytes % % Monocytes % % Eosinophils % % Basophils % % Neutrophils # (1.3-7.7) k/uL Lymphocytes # (1.0-4.8) k/uL Monocytes # (0-1.0) k/uL Eosinophils # (0-0.7) k/uL Basophils # (0-0.2) k/uL Hypochromasia Anisocytosis Microcytosis PT (9.0-12.0) sec INR (<1.2) APTT (22.0-30.0) sec Sodium (137-145) mmol/L Potassium (3.5-5.1) mmol/L Chloride (98-107) mmol/L Carbon Dioxide (22-30) mmol/L Anion Gap mmol/L BUN (9-20) mg/dL Creatinine (0.66-1.25) mg/dL Est GFR (CKD-EPI)AfAm (>60 ml/min/1.73 sqM) Est GFR (CKD-EPI)NonAf (>60 ml/min/1.73 sqM) Glucose (74-99) mg/dL Calcium (8.4-10.2) mg/dL Magnesium (1.6-2.3) mg/dL Total Bilirubin (0.2-1.3) mg/dL AST (17-59) U/L ALT (4-49) U/L Alkaline Phosphatase (38-126) U/L Troponin I <0.012 (0.000-0.034) ng/mL Total Protein (6.3-8.2) g/dL Albumin (3.5-5.0) g/dL Stool Occult Blood Positive (Negative) Blood Type O Positive Blood Type Confirm Blood Type Recheck No Previous Record Bld Type Recheck Status CABO Indicated Antibody Screen NEGATIVE Crossmatch See Detail Spec Expiration Date 08/26/2023 - 231408/23/23 Range/Units 19:20 WBC (3.8-10.6) k/uL RBC (4.30-5.90) m/uL Hgb (13.0-17.5) gm/dL Hct (39.0-53.0) % MCV (80.0-100.0) fL MCH (25.0-35.0) pg MCHC (31.0-37.0) g/dL RDW (11.5-15.5) % Plt Count (150-450) k/uL MPV Neutrophils % % Lymphocytes % % Monocytes % % Eosinophils % % Basophils % % Neutrophils # (1.3-7.7) k/uL Lymphocytes # (1.0-4.8) k/uL Monocytes # (0-1.0) k/uL Eosinophils # (0-0.7) k/uL Basophils # (0-0.2) k/uL Hypochromasia Anisocytosis Microcytosis PT (9.0-12.0) sec INR (<1.2) APTT (22.0-30.0) sec Sodium (137-145) mmol/L Potassium (3.5-5.1) mmol/L Chloride (98-107) mmol/L Carbon Dioxide (22-30) mmol/L Anion Gap mmol/L BUN (9-20) mg/dL Creatinine (0.66-1.25) mg/dL Est GFR (CKD-EPI)AfAm (>60 ml/min/1.73 sqM) Est GFR (CKD-EPI)NonAf (>60 ml/min/1.73 sqM) Glucose (74-99) mg/dL Calcium (8.4-10.2) mg/dL Magnesium (1.6-2.3) mg/dL Total Bilirubin (0.2-1.3) mg/dL AST (17-59) U/L ALT (4-49) U/L Alkaline Phosphatase (38-126) U/L Troponin I (0.000-0.034) ng/mL Total Protein (6.3-8.2) g/dL Albumin (3.5-5.0) g/dL Stool Occult Blood (Negative) Blood Type Blood Type Confirm O Positive Blood Type Recheck Bld Type Recheck Status Antibody Screen Crossmatch Spec Expiration Date Disposition Clinical Impression: Occult blood positive stool, Microcytic anemia Disposition: ADMITTED IP TO THIS [facility] Condition: Stable Is patient prescribed a controlled substance at d/c from ED?: No Time of Disposition: 21:07 Decision to Admit Reason: Admit from EC Decision Date: 08/23/23 Decision Time: 21:07
[2023-08-23] MEDS ORDERED: NALOXONE 0.4 MG/ML 1 ML VIAL IV PRN (21:08)
--- NOTE | 2023-08-24 03:42 | P.HPIM ---
History of Present Illness H&P Date: 08/23/23 Chief Complaint: abnormal blood work 72 year old male with CAD s/p stent he is coming in per his PCP recommendations, due to incidental finding of severe anemia during a preop blood work done on Thursday in prep for his knee surgery on the . his doc told him his Hgb is 6.2 and that he needs to go to the hospital . he denies any noticeable bleeding or demario. he is aware of hemorrhoids . he has noticed decrease exercise capacity with easy fatigability over the past 6 months. he at times, feels dizzy and lightheaded and gets winded easily with activity. he denies any history of bleeding or blood transfusion. denies taking any blood thinners or NSAIDs except for Aspirin. he denies any weight loss. he recalls having a normal colonoscopy about 10 years ago. he feels fine at time of my evaluation. he quit smoking last February, and denies any illicit drugs or alcohol review of systems Pertinent positives as noted in HPI. All other systems were reviewed and are negative on exam Constitutional: No acute distress, conversant, pleasant Eyes: Anicteric sclerae, moist conjunctiva, Pupils equal round reactive to light ENMT: NC/AT Oropharynx clear, no erythema, or exudates Neck: Supple, no masses, or JVD No carotid bruits No thyromegaly Lungs: Clear to auscultation Clear to percussion Normal respiratory effort, no accessory muscle use Cardiovascular: Heart regular in rate and rhythm, No murmurs, gallops, or rubs No peripheral edema Abdominal: Soft Nontender, no guarding, rebound or rigidity Abdomen moving with respiration Normoactive bowel sounds No hepatomegaly, No splenomegaly No palpable mass No abdominal wall hernia noted Skin: Normal temperature, tone, texture, turgor No induration No subcutaneous nodules No rash, lesions No ulcers Extremities: No digital cyanosis No clubbing Pedal pulses intact and symmetrical Radial pulses intact and symmetrical No calf tenderness Psychiatric: Alert and oriented to person, place and time Appropriate affect fair judgement Neuro Muscles Strength 5/5 in all 4 extremities Sensation to light touch grossly present throughout Cranial nerves II-XII grossly intact Lymphatics: no palpable cervical or supraclavicular lymph nodes Past Medical History Past Medical History: Diabetes Mellitus, Myocardial Infarction ([place]) Additional Past Medical History / Comment(s): recently diagnosed with diabetes and new oral meds have been prescribed. diverticulitis Last Myocardial Infarction Date:: 11/06/21 History of Any Multi-Drug Resistant Organisms: None Reported Past Surgical History: Ear Surgery, Heart Catheterization With Stent, Hernia Repair Additional Past Surgical History / Comment(s): left arm bicep and tendon repair Past Anesthesia/Blood Transfusion Reactions: No Reported Reaction Date of Last Stent Placement:: 11/06/21 Past Psychological History: No Psychological Hx Reported Smoking Status: Current some day smoker Past Alcohol Use History: None Reported Past Drug Use History: Marijuana - Past Family History Mother Family Medical History: No Reported History Medications and Allergies Home Medications Medication Instructions Recorded Confirmed Type Aspirin 81 mg PO DAILY tab 11/08/21 08/23/23 Rx Atorvastatin [Lipitor] 80 mg PO HS #90 tab 11/08/21 08/23/23 Rx lisinopriL [Zestril] 2.5 mg PO DAILY #90 tab 11/08/21 08/23/23 Rx Cinnamon Bark [Cinnamon] 2,000 mg PO DAILY 02/27/23 08/23/23 History Metoprolol Succinate (ER) [Toprol 50 mg PO DAILY 02/27/23 08/23/23 History XL] Sildenafil Citrate 100 mg PO DAILY PRN 02/27/23 08/23/23 History Vitamin K2 100 mcg PO DAILY 02/27/23 08/23/23 History Omeprazole 40 mg PO DAILY 08/23/23 08/23/23 History Allergies Allergy/AdvReac Type Severity Reaction Status Date / Time No Known Allergies Allergy Verified 08/23/23 20:35 Physical Exam Vitals: Vital Signs Temp Pulse Resp BP Pulse Ox 08/24/23 01:30 97.8 F 70 18 125/62 98 08/23/23 22:09 98.9 F 69 18 126/49 08/23/23 21:49 98.6 F 67 18 123/53 98 08/23/23 21:31 98.1 F 69 18 124/53 08/23/23 19:01 98.4 F 73 18 127/57 98 Intake and Output 08/23/23 08/23/23 08/24/23 14:59 22:59 06:59 Intake Total 0 285 Balance 0 285 Intake: Blood Product 0 285 Rc Pheresis 2 As3 Unit 0 285 [id number] Other: Weight 97.522 kg Results CBC & Chem 7: 08/23/23 19:08 08/23/23 19:08 Labs: Abnormal Lab Results - Last 24 Hours (Table) 08/23/23 08/23/23 08/23/23 Range/Units 19:08 19:08 19:15 RBC 3.06 L (4.30-5.90) m/uL Hgb 6.9 L* (13.0-17.5) gm/dL Hct 22.4 L (39.0-53.0) % MCV 73.1 L (80.0-100.0) fL MCH 22.4 L (25.0-35.0) pg MCHC 30.6 L (31.0-37.0) g/dL RDW 16.2 H (11.5-15.5) % Carbon Dioxide 21 L (22-30) mmol/L BUN 22 H (9-20) mg/dL Creatinine 1.52 H (0.66-1.25) mg/dL Glucose 166 H (74-99) mg/dL Crossmatch See Detail Assessment and Plan Assessment: 72 year old male with CAD s/p stent coming in for severe anemia , I discussed the case with ED doc and I accepted the admission for severe anemia for GI workup with anticipated length of stay < 2 midnights symptomatic microcytic anemia denies GI bleeding hgb 6.9 1 u blood transfusion monitor H and H occult blood test is positive Gen surg consult to consider endoscopy monitor vital signs check iron workup h/o CAD s/p stent resume statin resume Aspirin on 08/25 hypertension resume lisinopril and metoprolol CKD 3 stable bun 22 cr 1.5 K 4.3 monitor urine output avoid nephrotoxic meds FUll code DVT PPX mechanical
[2023-08-24] MEDS ORDERED: ASPIRIN 81 MG PO SCH (09:00)
[2023-08-24] MEDS ORDERED: PEG 3350 (236 GM/BTL) + LYTES 4,000 ML BOTTLE PO ONE (09:45)
[2023-08-24] MEDS: METOPROLOL SUCCINATE (ER) 50 MG TAB.ER.24H PO SCH (09:58)
[2023-08-24] MEDS: PANTOPRAZOLE 40 MG TABLET PO SCH (09:58)
[2023-08-24 10:10] LABS: Basophils % (A) 1 %; Eosinophils # (A) 0.3 k/uL (0-0.7); Eosinophils % (A) 5 %; HCT 24.4 % (39.0-53.0); Hypochromasia Marked; Lymphocytes # (A) 1.2 k/uL (1.0-4.8); Lymphocytes % (A) 21 %; MCH 21.6 pg (25.0-35.0); MCHC 28.5 g/dL (31.0-37.0); MCV 75.9 fL (80.0-100.0); Mean Platelet Volume 7.8; Microcytosis Slight; Monocytes # (A) 0.4 k/uL (0-1.0); Monocytes % (A) 7 %; Neutrophils # (A) 3.6 k/uL (1.3-7.7); Neutrophils % (A) 64 %; Platelet Count 256 k/uL (150-450); Poikilocytosis Moderate; RBC 3.22 m/uL (4.30-5.90); WBC 5.7 k/uL (3.8-10.6)
[2023-08-24 10:15] LABS: African American GFR (CKD) 63 (>60 ml/min/1.73 sqM); Anion Gap 9 mmol/L; Blood Urea Nitrogen 19 mg/dL (9-20); Calcium 8.4 mg/dL (8.4-10.2); Carbon Dioxide 22 mmol/L (22-30); Chloride 107 mmol/L (98-107); Glucose 155 mg/dL (74-99); Non-African American GFR(CKD) 54 (>60 ml/min/1.73 sqM); Potassium 4.7 mmol/L (3.5-5.1); Sodium 138 mmol/L (137-145)
[2023-08-24 10:32] LABS: % Iron Saturation 2.49 (15.00-50.00); Ferritin 7.5 ng/mL (22.0-322.0)
[2023-08-24 11:31] LABS: Glucose,Whole Blood 185 mg/dL (70-110)
--- NOTE | 2023-08-24 12:44 | P.GSCN ---
History of Present Illness Consult date: 08/24/23 History of present illness: CHIEF COMPLAINT: Anemia HISTORY OF PRESENT ILLNESS: This is a 72-year-old male who presented to the hospital due to anemia. He had outpatient blood work done and was found to have a hemoglobin of 6.2 and was told to come to the emergency room. Routine Blood work was completed for knee surgery that is on September 09. Patient denies any blood in his stools. Denies any black stools. Denies abdominal pain. Denies any nausea or vomiting. He does report occasional hemorrhoid pain. His stool for occult blood was positive. Hemoglobin on admission 6.9 patient did receive 1 unit of blood. Hemoglobin this morning is 7.0. Patient reports last colonoscopy was over 10 years ago and reported as normal. He denies being on any blood thinners. He has been off of Plavix for a couple months now. Patient denies any NSAID use. Patient does have a history of hemorrhoids and diverticulosis. PAST MEDICAL HISTORY: See below PAST SURGICAL HISTORY: See below MEDICATIONS: See below ALLERGIES: See below SOCIAL HISTORY: No illicit drug use. REVIEW OF SYSTEMS: CONSTITUTIONAL: Denies fever or chills. HEENT: Denies blurred vision, vision changes, or eye pain. Denies hemoptysis CARDIOVASCULAR: Denies chest pain or pressure. RESPIRATORY: No shortness of breath. GASTROINTESTINAL: See HPI for pertinent findings HEMATOLOGIC: Denies bleeding disorders. GENITOURINARY: Denies any blood in urine or increased urinary frequency. SKIN: Denies pruitis. Denies rash. PHYSICAL EXAM: VITAL SIGNS: Reviewed GENERAL: Well-developed in no acute distress. ABDOMEN: Soft. Nondistended. Nontender NEUROLOGIC: Alert and oriented. Cranial nerves II through XII grossly intact. LABORATORY DATA: WBC 5.7 Hgb 6.9 up to 7.0. Hgb in 02/2023 was 13.7 Iron low at 12 Stool for occult blood positive IMAGING: ASSESSMENT: 1. Iron deficiency anemia with stool occult blood positive PLAN: -Patient Scheduled for EGD and colonoscopy tomorrow with Dr. Gerardo -Patient have close liquid diet today -Start GoLYTELY bowel prep -Nothing by mouth after midnight -Continue to monitor hemoglobin -Continue to monitor for any signs or symptoms of bleeding Physician Dairy Helper note has been reviewed by physician. Signing provider agrees with the documented findings, assessment, and plan of care. I have personally seen and examined the patient, reviewed the DYNAMO TENDER /PAs history, exam and MDM and agree with the assessment and plan as written. Based on total visit time, I have performed more than 50% of the visit. As above: Options reviewed with patient. We'll proceed with upper and lower endoscopy tomorrow. Patient is agreeable. Past Medical History Past Medical History: Diabetes Mellitus, Myocardial Infarction ([place]) Additional Past Medical History / Comment(s): recently diagnosed with diabetes and new oral meds have been prescribed. diverticulitis Last Myocardial Infarction Date:: 11/06/21 History of Any Multi-Drug Resistant Organisms: None Reported Past Surgical History: Ear Surgery, Heart Catheterization With Stent, Hernia Repair Additional Past Surgical History / Comment(s): left arm bicep and tendon repair,vastectomy,left ear operation Past Anesthesia/Blood Transfusion Reactions: No Reported Reaction Date of Last Stent Placement:: 11/06/21 Past Psychological History: No Psychological Hx Reported Smoking Status: Current some day smoker Past Alcohol Use History: None Reported Past Drug Use History: Marijuana Additional Drug Use History / Comment(s): Patient quit smokng in February - Past Family History Mother Family Medical History: No Reported History Father Family Medical History: Myocardial Infarction ([place]) Brother(s) Family Medical History: Cancer Additional Family Medical History / Comment(s): cancer Sister(s) Family Medical History: Cancer Medications and Allergies Home Medications Medication Instructions Recorded Confirmed Type Aspirin 81 mg PO DAILY tab 11/08/21 08/23/23 Rx Atorvastatin [Lipitor] 80 mg PO HS #90 tab 11/08/21 08/23/23 Rx lisinopriL [Zestril] 2.5 mg PO DAILY #90 tab 11/08/21 08/23/23 Rx Cinnamon Bark [Cinnamon] 2,000 mg PO DAILY 02/27/23 08/23/23 History Metoprolol Succinate (ER) [Toprol 50 mg PO DAILY 02/27/23 08/23/23 History XL] Sildenafil Citrate 100 mg PO DAILY PRN 02/27/23 08/23/23 History Vitamin K2 100 mcg PO DAILY 02/27/23 08/23/23 History Omeprazole 40 mg PO DAILY 08/23/23 08/23/23 History Allergies Allergy/AdvReac Type Severity Reaction Status Date / Time No Known Allergies Allergy Verified 08/23/23 20:35 Surgical - Exam Vital Signs Temp Pulse Resp BP Pulse Ox 98.4 F 73 18 127/57 98 08/23/23 19:01 08/23/23 19:01 08/23/23 19:01 08/23/23 19:01 08/23/23 19:01 Results - Labs 08/24/23 09:29 08/24/23 09:29 Abnormal Lab Results - Last 24 Hours (Table) 08/23/23 08/23/23 08/23/23 Range/Units 19:08 19:08 19:15 RBC 3.06 L (4.30-5.90) m/uL Hgb 6.9 L* (13.0-17.5) gm/dL Hct 22.4 L (39.0-53.0) % MCV 73.1 L (80.0-100.0) fL MCH 22.4 L (25.0-35.0) pg MCHC 30.6 L (31.0-37.0) g/dL RDW 16.2 H (11.5-15.5) % Carbon Dioxide 21 L (22-30) mmol/L BUN 22 H (9-20) mg/dL Creatinine 1.52 H (0.66-1.25) mg/dL Glucose 166 H (74-99) mg/dL Crossmatch See Detail Diabetes panel 08/23/23 Range/Units 19:08 Sodium 138 (137-145) mmol/L Potassium 4.3 (3.5-5.1) mmol/L Chloride 105 (98-107) mmol/L Carbon Dioxide 21 L (22-30) mmol/L BUN 22 H (9-20) mg/dL Creatinine 1.52 H (0.66-1.25) mg/dL Glucose 166 H (74-99) mg/dL Calcium 8.6 (8.4-10.2) mg/dL AST 23 (17-59) U/L ALT 14 (4-49) U/L Alkaline Phosphatase 94 (38-126) U/L Total Protein 7.1 (6.3-8.2) g/dL Albumin 3.9 (3.5-5.0) g/dL Calcium panel 08/23/23 Range/Units 19:08 Calcium 8.6 (8.4-10.2) mg/dL Albumin 3.9 (3.5-5.0) g/dL Pituitary panel 08/23/23 Range/Units 19:08 Sodium 138 (137-145) mmol/L Potassium 4.3 (3.5-5.1) mmol/L Chloride 105 (98-107) mmol/L Carbon Dioxide 21 L (22-30) mmol/L BUN 22 H (9-20) mg/dL Creatinine 1.52 H (0.66-1.25) mg/dL Glucose 166 H (74-99) mg/dL Calcium 8.6 (8.4-10.2) mg/dL Adrenal panel 08/23/23 Range/Units 19:08 Sodium 138 (137-145) mmol/L Potassium 4.3 (3.5-5.1) mmol/L Chloride 105 (98-107) mmol/L Carbon Dioxide 21 L (22-30) mmol/L BUN 22 H (9-20) mg/dL Creatinine 1.52 H (0.66-1.25) mg/dL Glucose 166 H (74-99) mg/dL Calcium 8.6 (8.4-10.2) mg/dL Total Bilirubin 0.5 (0.2-1.3) mg/dL AST 23 (17-59) U/L ALT 14 (4-49) U/L Alkaline Phosphatase 94 (38-126) U/L Total Protein 7.1 (6.3-8.2) g/dL Albumin 3.9 (3.5-5.0) g/dL
--- NOTE | 2023-08-24 13:10 | P.PN ---
Subjective Progress Note Date: 08/24/23 72-year-old male with PMH of CAD, CKD stage III, diabetes mellitus presents the ED for abnormal labs. Currently undergoing preoperative evaluation for an orthopedic procedure on 09/09. He was noted to have a hemoglobin of 6.2. He reports fatigue and easy fatigability. Also reports lightheadedness and shortness of breath with exertion. Denies melena or hematochezia. In the ED, vital signs were stable. CBC showed hemoglobin of 6.9 with MCV 73.1. Coagulation panel within normal limits. CMP showed bicarb 21, BUN 22, creatinine 1.52, glucose 166. Magnesium 2. Troponin less than 0.012. Stool f or occult blood positive. Patient was admitted for further workup and management. 08/24 Patient was seen and examined. Received 1 unit PRBC. Hemoglobin 7. BMP shows creatinine of 1.33 and glucose of 155. Surgery consulted, plans for EGD and colonoscopy tomorrow. Iron is 12. Ferritin 7.5. General: non toxic, no distress, appears at stated age Derm: warm, dry Head: atraumatic, normocephalic, symmetric Eyes: EOMI, no lid lag, anicteric sclera Cardiovascular: good distal perfusion in all 4 extremities Lungs: breathing comfortably , no accessory muscle use Ext: no gross muscle atrophy, no edema, no contractures Neuro: no focal neuro deficits Psych: Alert, oriented, appropriate affect Iron deficiency anemia with positive stool for occult blood Chronic conditions: CAD, CKD stage III, diabetes mellitus Based on my assessment of this patient, this patient meets a moderate complexity level of care. Patient has a new diagnosis of iron deficiency anemia with uncertain prognosis. Scheduled for EGD and C-scope on 08/25. Iron deficiency anemia with positive stool for occult blood: Repeat Hg at 4PM. Transfuse if Hg < 7. Ferric gluconate 125 mg IV ordered by Hematology. Plans for EGD and C-scope tomorrow. SCDs for DVT prophylaxis. FULL CODE. I have reviewed the following data power consultant notes: Surgery note I have reviewed the results of the following tests: CBC, BMP. I have ordered the following tests: CBC at 4PM. I have discussed the care of this patient with the following independent historian: I have independently interpreted the following test below: I have discussed the management of this patient with the following physician: Objective - Vital Signs Vital signs: Vital Signs Temp 97.6 F 08/24/23 08:00 Pulse 63 08/24/23 08:00 Resp 17 08/24/23 08:00 BP 127/63 08/24/23 08:00 Pulse Ox 99 08/24/23 08:00 FiO2 Intake & Output 08/23/23 08/24/23 08/24/23 18:59 06:59 18:59 Intake Total 285 Balance 285 Weight 97.522 kg 97.522 kg Intake: Blood Product 285 Rc Pheresis 2 As3 Unit 285 [id number] - Labs CBC & Chem 7: 08/24/23 09:29 08/24/23 09:29 Labs: Abnormal Lab Results - Last 24 Hours (Table) 08/23/23 08/23/23 08/23/23 Range/Units 19:08 19:08 19:08 RBC 3.06 L (4.30-5.90) m/uL Hgb 6.9 L* (13.0-17.5) gm/dL Hct 22.4 L (39.0-53.0) % MCV 73.1 L (80.0-100.0) fL MCH 22.4 L (25.0-35.0) pg MCHC 30.6 L (31.0-37.0) g/dL RDW 16.2 H (11.5-15.5) % Carbon Dioxide 21 L (22-30) mmol/L BUN 22 H (9-20) mg/dL Creatinine 1.52 H (0.66-1.25) mg/dL Glucose 166 H (74-99) mg/dL POC Glucose (mg/dL) (70-110) mg/dL Iron 12 L (65-175) UG/DL TIBC 482 H (228-460) UG/DL % Saturation 2.49 L (15.00-50.00) Ferritin 7.5 L (22.0-322.0) ng/mL Crossmatch 08/23/23 08/24/23 08/24/23 Range/Units 19:15 09:29 09:29 RBC 3.22 L (4.30-5.90) m/uL Hgb 7.0 L (13.0-17.5) gm/dL Hct 24.4 L (39.0-53.0) % MCV 75.9 L (80.0-100.0) fL MCH 21.6 L (25.0-35.0) pg MCHC 28.5 L (31.0-37.0) g/dL RDW 16.0 H (11.5-15.5) % Carbon Dioxide (22-30) mmol/L BUN (9-20) mg/dL Creatinine 1.33 H (0.66-1.25) mg/dL Glucose 155 H (74-99) mg/dL POC Glucose (mg/dL) (70-110) mg/dL Iron (65-175) UG/DL TIBC (228-460) UG/DL % Saturation (15.00-50.00) Ferritin (22.0-322.0) ng/mL Crossmatch See Detail 08/24/23 Range/Units 11:30 RBC (4.30-5.90) m/uL Hgb (13.0-17.5) gm/dL Hct (39.0-53.0) % MCV (80.0-100.0) fL MCH (25.0-35.0) pg MCHC (31.0-37.0) g/dL RDW (11.5-15.5) % Carbon Dioxide (22-30) mmol/L BUN (9-20) mg/dL Creatinine (0.66-1.25) mg/dL Glucose (74-99) mg/dL POC Glucose (mg/dL) 185 H (70-110) mg/dL Iron (65-175) UG/DL TIBC (228-460) UG/DL % Saturation (15.00-50.00) Ferritin (22.0-322.0) ng/mL Crossmatch
--- NOTE | 2023-08-24 14:08 | P.CONS ---
History of Present Illness - Reason for Consult Consult date: 08/24/23 anemia Requesting physician: Rina Ley - Chief Complaint Low hgb, SOB - History of Present Illness Patient is a 72-year-old male with a significant history of hypertension and hypercholesteremia. We were consulted for anemia. Patient was having blood work for upcoming orthopedic procedure and was called by his PCP due to a hemoglobin of 6.2 that was found on CBC and referred patient to the emergency room. Patient reports over the last 6 weeks he's been having increasing fatigue shortness of breath and intermittent dizziness. Reports a history of hemorrhoids and has seen blood when wiping after a bowel movement but denies blood in stool and melena. Patient is on baby aspirin daily. Denies use of NSAIDs. Patient used to take Plavix but reports medication was discontinued approximately one year ago. Patient has never had EGD and reports last colonoscopy was 15-20 years ago. Upon admission CBC revealed microcytic hypochromic anemia with a hemoglobin of 6.9. Stool occult positive Patient was given 1 unit of PRBCs. Hemoglobin today 7.0. General surgery has been consulted with plans for colonoscopy and EGD tomorrow. Review of Systems 10 point ROS is negative except as stated in the HPI Past Medical History Past Medical History: Diabetes Mellitus, Myocardial Infarction ([place]) Additional Past Medical History / Comment(s): recently diagnosed with diabetes and new oral meds have been prescribed. diverticulitis Last Myocardial Infarction Date:: 11/06/21 History of Any Multi-Drug Resistant Organisms: None Reported Past Surgical History: Ear Surgery, Heart Catheterization With Stent, Hernia Repair Additional Past Surgical History / Comment(s): left arm bicep and tendon repair,vastectomy,left ear operation Past Anesthesia/Blood Transfusion Reactions: No Reported Reaction Date of Last Stent Placement:: 11/06/21 Past Psychological History: No Psychological Hx Reported Smoking Status: Current some day smoker Past Alcohol Use History: None Reported Past Drug Use History: Marijuana Additional Drug Use History / Comment(s): Patient quit smokng in February - Past Family History Mother Family Medical History: No Reported History Father Family Medical History: Myocardial Infarction ([place]) Brother(s) Family Medical History: Cancer Additional Family Medical History / Comment(s): cancer Sister(s) Family Medical History: Cancer Medications and Allergies Home Medications Medication Instructions Recorded Confirmed Type Aspirin 81 mg PO DAILY tab 11/08/21 08/23/23 Rx Atorvastatin [Lipitor] 80 mg PO HS #90 tab 11/08/21 08/23/23 Rx lisinopriL [Zestril] 2.5 mg PO DAILY #90 tab 11/08/21 08/23/23 Rx Cinnamon Bark [Cinnamon] 2,000 mg PO DAILY 02/27/23 08/23/23 History Metoprolol Succinate (ER) [Toprol 50 mg PO DAILY 02/27/23 08/23/23 History XL] Sildenafil Citrate 100 mg PO DAILY PRN 02/27/23 08/23/23 History Vitamin K2 100 mcg PO DAILY 02/27/23 08/23/23 History Omeprazole 40 mg PO DAILY 08/23/23 08/23/23 History Allergies Allergy/AdvReac Type Severity Reaction Status Date / Time No Known Allergies Allergy Verified 08/23/23 20:35 Physical Exam Vitals: Vital Signs Temp Pulse Pulse Resp BP BP Pulse Ox 08/24/23 13:43 97.6 F 63 18 108/50 99 08/24/23 08:00 97.6 F 63 17 127/63 99 08/24/23 07:53 97.9 F 58 L 18 128/61 97 08/24/23 04:00 57 L 18 124/54 98 08/24/23 02:00 64 18 128/61 98 08/24/23 01:30 97.8 F 70 18 125/62 98 08/24/23 00:00 59 L 18 127/61 98 08/23/23 22:09 98.9 F 69 18 126/49 08/23/23 21:49 98.6 F 67 18 123/53 98 08/23/23 21:31 98.1 F 69 18 124/53 08/23/23 21:00 70 18 123/53 98 08/23/23 19:01 98.4 F 73 18 127/57 98 Intake and Output 08/23/23 08/24/23 08/24/23 22:59 06:59 14:59 Intake Total 0 285 Balance 0 285 Intake: Blood Product 0 285 Rc Pheresis 2 As3 Unit 0 285 [id number] Other: Weight 97.522 kg 97.522 kg - Constitutional General appearance: average body habitus, no acute distress - EENT Eyes: anicteric sclerae, EOMI ENT: hearing grossly normal - Respiratory Respiratory: bilateral: CTA - Cardiovascular Rhythm: regular Heart sounds: normal: S1, S2 Abnormal Heart Sounds: no systolic murmur, no diastolic murmur, no rub, no S3 Gallop, no S4 Gallop, no click, no other leg Peripheral Edema: bilateral: None - Gastrointestinal General gastrointestinal: no distended, soft, no tenderness - Integumentary Integumentary: no cyanotic, pale - Neurologic Neurologic: CNII-XII intact - Musculoskeletal Musculoskeletal: strength equal bilaterally - Psychiatric Psychiatric: A&O x's 3, appropriate affect, intact judgment & insight Results CBC & Chem 7: 08/24/23 09:29 08/24/23 09:29 Labs: Abnormal Lab Results - Last 24 Hours (Table) 08/23/23 08/23/23 08/23/23 Range/Units 19:08 19:08 19:08 RBC 3.06 L (4.30-5.90) m/uL Hgb 6.9 L* (13.0-17.5) gm/dL Hct 22.4 L (39.0-53.0) % MCV 73.1 L (80.0-100.0) fL MCH 22.4 L (25.0-35.0) pg MCHC 30.6 L (31.0-37.0) g/dL RDW 16.2 H (11.5-15.5) % Carbon Dioxide 21 L (22-30) mmol/L BUN 22 H (9-20) mg/dL Creatinine 1.52 H (0.66-1.25) mg/dL Glucose 166 H (74-99) mg/dL POC Glucose (mg/dL) (70-110) mg/dL Iron 12 L (65-175) UG/DL TIBC 482 H (228-460) UG/DL % Saturation 2.49 L (15.00-50.00) Ferritin 7.5 L (22.0-322.0) ng/mL Crossmatch 08/23/23 08/24/23 08/24/23 Range/Units 19:15 09:29 09:29 RBC 3.22 L (4.30-5.90) m/uL Hgb 7.0 L (13.0-17.5) gm/dL Hct 24.4 L (39.0-53.0) % MCV 75.9 L (80.0-100.0) fL MCH 21.6 L (25.0-35.0) pg MCHC 28.5 L (31.0-37.0) g/dL RDW 16.0 H (11.5-15.5) % Carbon Dioxide (22-30) mmol/L BUN (9-20) mg/dL Creatinine 1.33 H (0.66-1.25) mg/dL Glucose 155 H (74-99) mg/dL POC Glucose (mg/dL) (70-110) mg/dL Iron (65-175) UG/DL TIBC (228-460) UG/DL % Saturation (15.00-50.00) Ferritin (22.0-322.0) ng/mL Crossmatch See Detail 08/24/23 Range/Units 11:30 RBC (4.30-5.90) m/uL Hgb (13.0-17.5) gm/dL Hct (39.0-53.0) % MCV (80.0-100.0) fL MCH (25.0-35.0) pg MCHC (31.0-37.0) g/dL RDW (11.5-15.5) % Carbon Dioxide (22-30) mmol/L BUN (9-20) mg/dL Creatinine (0.66-1.25) mg/dL Glucose (74-99) mg/dL POC Glucose (mg/dL) 185 H (70-110) mg/dL Iron (65-175) UG/DL TIBC (228-460) UG/DL % Saturation (15.00-50.00) Ferritin (22.0-322.0) ng/mL Crossmatch Assessment and Plan (1) Microcytic anemia Current Visit: Yes Status: Acute Priority: High Code(s): D50.9 - IRON DEFICIENCY ANEMIA, UNSPECIFIED SNOMED Code(s): 037580777 Plan: Microcyctic hypochromic anemia: -Pre-procedural lab work showed a hemoglobin of 6.2. Upon admission CBC revealed microcytic hypochromic anemia with a hemoglobin of 6.9. Stool occult positive. -S/p 1 unit of PRBCs. Hemoglobin today, 7.0. Would expect hemoglobin closer to 7.9 after transfusion -Iron studies revealed iron 12, iron saturation 2.4%, ferritin 7.5. Parenteral iron ordered 4 doses -Will order remaining anemia workup to r/o other nutritional deficiencies -Will hold aspirin -CBC daily, please transfuse for hemoglobin less than 7 or if symptomatic -General surgery has been consulted with plans for colonoscopy and EGD tomorrow Pt updated and is agreeable with plan
[2023-08-24] MEDS: SODIUM FERRIC GLUCONAT-SUCROSE 125 MG in SODIUM CHLORIDE 0.9% 100 ML IVPB SCH (14:45)
[2023-08-24 16:28] LABS: Glucose,Whole Blood 140 mg/dL (70-110)
[2023-08-24 17:53] LABS: HCT 25.3 % (39.0-53.0); HGB 7.4 gm/dL (13.0-17.5); Hypochromasia Marked; MCH 22.2 pg (25.0-35.0); MCHC 29.3 g/dL (31.0-37.0); MCV 75.8 fL (80.0-100.0); Mean Platelet Volume 8.2; Microcytosis Slight; Platelet Count 264 k/uL (150-450); Poikilocytosis Moderate; RBC 3.33 m/uL (4.30-5.90); WBC 6.7 k/uL (3.8-10.6)
[2023-08-24 19:26] LABS: Glucose,Whole Blood 151 mg/dL (70-110)
[2023-08-24] MEDS ORDERED: LACTATED RINGERS 1,000 ML IV SCH (19:45)
[2023-08-24] MEDS ORDERED: ATORVASTATIN 80 MG TAB PO SCH (21:00)
[2023-08-25 05:37] LABS: Anisocytosis Slight; HCT 23.8 % (39.0-53.0); HGB 7.1 gm/dL (13.0-17.5); Hypochromasia Marked; MCH 21.7 pg (25.0-35.0); MCHC 29.7 g/dL (31.0-37.0); MCV 73.1 fL (80.0-100.0); Mean Platelet Volume 8.1; Microcytosis Moderate; Platelet Count 270 k/uL (150-450); Poikilocytosis Moderate; RBC 3.26 m/uL (4.30-5.90); RDW 16.4 % (11.5-15.5); WBC 7.2 k/uL (3.8-10.6)
[2023-08-25 05:38] LABS: African American GFR (CKD) 63 (>60 ml/min/1.73 sqM); Anion Gap 9 mmol/L; Blood Urea Nitrogen 14 mg/dL (9-20); Calcium 8.4 mg/dL (8.4-10.2); Carbon Dioxide 23 mmol/L (22-30); Chloride 107 mmol/L (98-107); Glucose 115 mg/dL (74-99); Non-African American GFR(CKD) 54 (>60 ml/min/1.73 sqM); Potassium 4.7 mmol/L (3.5-5.1); Sodium 139 mmol/L (137-145)
[2023-08-25 05:50] LABS: Glucose,Whole Blood 142 mg/dL (70-110)
[2023-08-25] MEDS ORDERED: PROPOFOL 10 MG/ML 20 ML VIAL IV ONE (07:24)
[2023-08-25] MEDS ORDERED: LIDOCAINE 2% INJ 20 MG/ML (2 ML VIAL) ONE (07:24)
[2023-08-25] MEDS ORDERED: IV FLUID CONTINUATION 500 ML IV ONE ×2 (07:30)
--- NOTE | 2023-08-25 08:03 | P.PCN ---
Date of Procedure: 08/25/23 Procedure(s) Performed: PREOPERATIVE DIAGNOSIS: GI bleed, anemia POSTOPERATIVE DIAGNOSIS: Mild gastritis, diverticulosis PROCEDURE: 1. EGD with biopsy 2. Colonoscopy ANESTHESIA: MAC SURGEON: Po Gerardo M.D. SPECIMENS: Antrum ENDOSCOPIC PROCEDURE: The patient was on the endoscopy table in the left de cubitus position. The Olympus gastroscope was inserted into the oropharynx and passed under direct visualization to the region of the third portion of the duodenum. From that point the scope was slowly withdrawn inspecting all surfaces carefully. There were no neoplastic inflammatory or polypoid lesions throughout the duodenum. The pylorus was widely patent. The stomach was carefully inspected. There was gastritis present without evidence of ulcerations. No evidence of recent bleeding. A biopsy of the antrum took place to rule out H. pylori. Retroflexion revealed a normal hiatus. The esophagus was then carefully examined. There were no neoplastic inflammatory or polypoid lesions throughout the visualized esophagus. The patient was kept on the endoscopy table in the left decubitus position. The Olympus colonoscope was inserted into the anus and passed under direct visualization to the base of the cecum. The appendiceal orifice was visualized. From that point the scope was slowly withdrawn inspecting all surfaces carefully. There were no neoplastic inflammatory or polypoid lesions throughout the cecum, ascending, transverse, descending, sigmoid and rectum. There was left-sided diverticulosis noted. Digital rectal examination was normal. The patient was taken to the recovery room in stable condition per anesthesia guidelines. RECOMMENDATIONS: Etiology for patient's anemia not well explained on this study. Consider outpatient capsule endoscopy. If anemia persists consider hematology evaluation.
[2023-08-25 08:40] VITALS: BP 144/70; PULSE 58; RESP 21; TEMP 97.5
[2023-08-25] MEDS ORDERED: ASPIRIN 81 MG PO SCH (09:00)
[2023-08-25] MEDS: PANTOPRAZOLE 40 MG TABLET PO SCH (09:05)
[2023-08-25] MEDS: METOPROLOL SUCCINATE (ER) 50 MG TAB.ER.24H PO SCH (09:05)
[2023-08-25] MEDS: SODIUM FERRIC GLUCONAT-SUCROSE 125 MG in SODIUM CHLORIDE 0.9% 100 ML IVPB SCH (09:05)
--- NOTE | 2023-08-25 12:30 | P.DS ---
Providers Date of admission: 08/23/23 21:11 Expected date of discharge: 08/25/23 Attending physician: Niharika Goldberg MD Consults: 08/23/23 21:08 Consult Physician Urgent Consulting Provider: Po Gerardo Consult Reason/Comments: anemia, occult positive Do you want consulting provider notified?: Yes Consult Physician Urgent Consulting Provider: Celestino Martinez Consult Reason/Comments: microcytic anemia Do you want consulting provider notified?: Yes Primary care physician: Jayant Lorenzana Hospital Course: 72-year-old male with PMH of CAD, CKD stage III, diabetes mellitus presents the ED for abnormal labs. Currently undergoing preoperative evaluation for an orthopedic procedure on 09/09. He was noted to have a hemoglobin of 6.2. He reports fatigue and easy fatigability. Also reports lightheadedness and shortness of breath with exertion. Denies melena or hematochezia. In the ED, vital signs were stable. CBC showed hemoglobin of 6.9 with MCV 73.1. Coagulation panel within normal limits. CMP showed bicarb 21, BUN 22, creatinine 1.52, glucose 166. Magnesium 2. Troponin less than 0.012. Stool for occult blood positive. Patient was admitted for further workup and management. 08/24 Patient was seen and examined. Received 1 unit PRBC. Hemoglobin 7. BMP shows creatinine of 1.33 and glucose of 155. Surgery consulted, plans for EGD and colonoscopy tomorrow. Iron is 12. Ferritin 7.5. 08/25 Patient was seen and examined. He denies any dizziness, chest pain, SOB or palpitations. Underwent EGD and C-scope today which showed mild gastritis and diverticulosis. Surgery recommends capsule endoscopy in the outpatient setting. CBC today shows Hg 7.1. BMP shows Cr 1.33. Patient states he would like to go home as he has a conference later this evening. He has been given ferric gluconate over the past 2 days. Discussed with Hematology LASHA, OK to go home, will set up infusions for the outpatient setting. He is advised to repeat a CBC in 3 days and follow up with PCP for results. He will be given an appointment with Hematology, Surgery and Gastroenterology within a week. PPI will be switched from daily dosing to BID dosing for the next 7 days. He can restart his ASA. Patient verabalized understanding of the plan. Pertinent procedures include EGD and colonoscopy. General: non toxic, no distress, appears at stated age Derm: warm, dry Head: atraumatic, normocephalic, symmetric Eyes: EOMI, no lid lag, anicteric sclera Cardiovascular: good distal perfusion in all 4 extremities, normal S1-S2 Lungs: breathing comfortably , no accessory muscle use, clear to auscultation bilaterally Ext: no gross muscle atrophy, no edema, no contractures Neuro: no focal neuro deficits Psych: Alert, oriented, appropriate affect Discharge diagnosis: Iron deficiency anemia with positive stool for occult blood Chronic conditions: CAD, CKD stage III, diabetes mellitus This complex discharge took 35 minutes to complete. Patient Condition at Discharge: Stable Plan - Discharge Summary New Discharge Prescriptions: Continue Atorvastatin [Lipitor] 80 mg PO HS #90 tab Metoprolol Succinate (ER) [Toprol XL] 50 mg PO DAILY Cinnamon Bark [Cinnamon] 2,000 mg PO DAILY Aspirin 81 mg PO DAILY tab lisinopriL [Zestril] 2.5 mg PO DAILY #90 tab Vitamin K2 100 mcg PO DAILY Changed Omeprazole 40 mg PO BID #60 cap Discontinued Sildenafil Citrate 100 mg PO DAILY PRN PRN Reason: E.D. Discharge Medication List Aspirin 81 mg PO DAILY tab 11/08/21 [Rx] Atorvastatin [Lipitor] 80 mg PO HS #90 tab 11/08/21 [Rx] lisinopriL [Zestril] 2.5 mg PO DAILY #90 tab 11/08/21 [Rx] Cinnamon Bark [Cinnamon] 2,000 mg PO DAILY 02/27/23 [History] Metoprolol Succinate (ER) [Toprol XL] 50 mg PO DAILY 02/27/23 [History] Vitamin K2 100 mcg PO DAILY 02/27/23 [History] Omeprazole 40 mg PO BID #60 cap 08/25/23 [Rx] Follow up Appointment(s)/Referral(s): Po Gerardo MD [Medical Doctor] - 09/01/23 3:00 pm Celestino Martinez [STAFF PHYSICIAN] - 09/24/23 3:00 pm (microcytic anemia) Jayant Lorenzana MD [Primary Care Provider] - 08/31/23 12:15 pm Karissa Mistry MD [STAFF PHYSICIAN] - 1 Week (office not answering Please call to schedule appointment ) Ambulatory/Diagnostic Orders: Complete Blood Count w/diff [LAB.AMB] Time Frame: 3 Days, Location: None Selected Patient Instructions/Handouts: Anemia (DC) Activity/Diet/Wound Care/Special Instructions: Repeat CBC in 3 days follow up results with PCP. Follow up with PCP within 1-2 days of discharge. Follow up with Dr. Gerardo and Dr. Mistry within 1 week of discharge. Follow up with Dr. Martinez in clinic for continue IV iron infusions and hemoglobin monitoring. Come back to the hospital for dizziness, chest pain, SOB, palpitations. Discharge Disposition: HOME SELF-CARE
--- NOTE | 2023-08-25 15:15 | P.PN ---
Subjective Progress Note Date: 08/25/23 Principal diagnosis: anemia At today's visit patient is resting comfortably in bed. S/P colonoscopy and EGD today. Revealing gastritis and diverticulosis, no acute bleeding identified. Hemoglobin 7.1 today. Patient denies chest pain, dizziness, shortness of breath, and weakness. Objective - Vital Signs Vital signs: Vital Signs Temp 97.5 F L 08/25/23 08:00 Pulse 58 L 08/25/23 08:00 Resp 21 08/25/23 08:00 BP 144/70 08/25/23 08:00 Pulse Ox 99 08/25/23 08:00 FiO2 Intake & Output 08/24/23 08/25/23 08/25/23 18:59 06:59 18:59 Intake Total 200 Balance 200 Weight 97.522 kg 103 kg Intake: IV 200 Other: Voiding Method Toilet # Voids 3 1 - Constitutional General appearance: Present: average body habitus, no acute distress - EENT Eyes: Present: anicteric sclerae, EOMI ENT: Present: hearing grossly normal - Respiratory Details: breathing is even and unlabored - Cardiovascular Details: skin warm ad dry - Gastrointestinal General gastrointestinal: Present: soft. Absent: tenderness - Integumentary Integumentary: Present: pale. Absent: cyanotic - Neurologic Neurologic: Present: CNII-XII intact - Musculoskeletal Musculoskeletal: Present: strength equal bilaterally - Psychiatric Psychiatric: Present: A&O x's 3, appropriate affect, intact judgment & insight - Labs CBC & Chem 7: 08/25/23 04:43 08/25/23 04:43 Labs: Abnormal Lab Results - Last 24 Hours (Table) 08/24/23 08/24/23 08/24/23 Range/Units 16:27 17:21 19:24 RBC 3.33 L (4.30-5.90) m/uL Hgb 7.4 L (13.0-17.5) gm/dL Hct 25.3 L (39.0-53.0) % MCV 75.8 L (80.0-100.0) fL MCH 22.2 L (25.0-35.0) pg MCHC 29.3 L (31.0-37.0) g/dL RDW 16.0 H (11.5-15.5) % Creatinine (0.66-1.25) mg/dL Glucose (74-99) mg/dL POC Glucose (mg/dL) 140 H 151 H (70-110) mg/dL 08/25/23 08/25/23 08/25/23 Range/Units 04:43 04:43 05:49 RBC 3.26 L (4.30-5.90) m/uL Hgb 7.1 L (13.0-17.5) gm/dL Hct 23.8 L (39.0-53.0) % MCV 73.1 L (80.0-100.0) fL MCH 21.7 L (25.0-35.0) pg MCHC 29.7 L (31.0-37.0) g/dL RDW 16.4 H (11.5-15.5) % Creatinine 1.33 H (0.66-1.25) mg/dL Glucose 115 H (74-99) mg/dL POC Glucose (mg/dL) 142 H (70-110) mg/dL Assessment and Plan (1) Microcytic anemia Status: Acute Priority: High Code(s): D50.9 - IRON DEFICIENCY ANEMIA, UNSPECIFIED SNOMED Code(s): 312324546 Plan: Mirocyctic hypochromic anemia/GI bleed: -Outpt pre-procedural lab work showed a hemoglobin of 6.2. Upon admission CBC revealed microcytic hypochromic anemia with a hemoglobin of 6.9. Stool occult positive. -S/p 1 unit of PRBCs. Hemoglobin 7.1 today -Iron studies revealed iron 12, iron saturation 2.4%, ferritin 7.5. Parenteral iron ordered 4 doses -Anemia workup revealed B12 295, folate 12.8. MMA pending. Will start daily PO vitamin B12 and folate supplementation, pt educated on dose/admin -S/P colonoscopy and EGD today. Revealing gastritis and diverticulosis, no acute bleeding identified. Plan to follow up with general surgery outpatient, may consider small bowel capsule study. -Instructed pt to hold baby aspirin until hgb recovers and to f/u with cardiology upon discharge -Spoke with IM, patient is requesting to be discharged today. Currently asymptomatic. Educated patient on warning signs and symptoms that would prompt further evaluation. Encouraged patient to have close follow-up with PCP for repeat CBCs. -Patient received 2 doses of Ferrlecit. Will schedule patient for Feraheme infusion in clinic with follow-up for repeat iron studies
[2023-08-26 08:52] LABS: Methylmalonic Acid 0.33 umol/L (<0.40)
== END 2023-08-25 11:45 | disposition home or self-care (01) ==
LOC: EC 18:55 → 4SSUR 21:11 → INTOOBSV 21:11 → 4SSUR 08-24 06:16 → UNDODISIN 08-25 11:45
PROVIDERS: ADMIT Internal Medicine; ATTEND Internal Medicine
PROC: 30233N1 Transfusion of Nonautologous Red Blood Cells into Peripheral Vein, Percutaneous Approach (ICD-10-PCS; principal; 2023-08-23)
PROC: 0DJD8ZZ Inspection of Lower Intestinal Tract, Via Natural or Artificial Opening Endoscopic (ICD-10-PCS; 2023-08-25 12:45)
PROC: 0DB78ZX Excision of Stomach, Pylorus, Via Natural or Artificial Opening Endoscopic, Diagnostic (ICD-10-PCS; 2023-08-25 12:45)
DX: D50.9 Iron deficiency anemia, unspecified (principal); K29.70 Gastritis, unspecified, without bleeding; K57.30 Diverticulosis of large intestine without perforation or abscess without bleeding; I12.9 Hypertensive chronic kidney disease with stage 1 through stage 4 chronic kidney disease, or unspecified chronic kidney disease; N18.30 Chronic kidney disease, stage 3 unspecified; E11.22 Type 2 diabetes mellitus with diabetic chronic kidney disease; K64.9 Unspecified hemorrhoids; R19.5 Other fecal abnormalities; I25.10 Atherosclerotic heart disease of native coronary artery without angina pectoris; E78.00 Pure hypercholesterolemia, unspecified; I25.2 Old myocardial infarction; Z79.82 Long term (current) use of aspirin; Z79.899 Other long term (current) drug therapy; Z87.891 Personal history of nicotine dependence; Z95.5 Presence of coronary angioplasty implant and graft; Z98.890 Other specified postprocedural states; Z82.49 Family history of ischemic heart disease and other diseases of the circulatory system; Z80.9 Family history of malignant neoplasm, unspecified
CPT/HCPCS: 96365; 36430; 99291; 36415; 86900; 86901; 83921; 88305; 80053; 80048 ×2; 82607; 82728; 82525; 82746; 83540; 83550; 83735; 84484; 85025 ×2; 85027 ×2; 85610; 85730; 86850; 86920; 82272; 45378; 43239; G0378 ×3; P9016; J2916 ×2; J2704; J2001

== ENCOUNTER → 2023-10-05 | Day surgery (SDC) | payer MEDICARE ==
[2023-10-01 09:46] VITALS: BMI 30.7
[~2023-10-05] MED LIST changes: -ALPRAZolam 0.25 MG TAB PO PRN; -ALPRAZolam 0.5 MG TAB PO PRN; -ASPIRIN 325 MG TAB PO STA; -HEPARIN SODIUM,PORCINE 10,000 UNIT in SODIUM CHLORIDE 0.9% 1,000 ML IRRIGATION PRN; -HEPARIN SODIUM,PORCINE 2,500 UNIT in SODIUM CHLORIDE 0.9% 250 ML IRRIGATION PRN; -NITROGLYCERIN SL TABS 0.4 MG TAB SUBLINGUAL PRN; +SIMETHICONE 40 MG/0.6 ML DROPS 2,000 MG/30 ML BOTTLE PO ONE; -SODIUM CHLORIDE 0.9% 1,000 ML in EMPTY BAG 1 BAG IV SCH
[2023-10-05 07:22] VITALS: BP 156/67; PULSE 50; RESP 18; TEMP 98.8
== END ==
LOC: ORWHC2ENDO 06:22
PROVIDERS: ATTEND Internal Medicine Gastroenterology
DX: D50.9 Iron deficiency anemia, unspecified (principal)
CPT/HCPCS: 91110

== ENCOUNTER → 2024-05-06 | Outpatient (CLI) | payer MEDICARE ==
[2024-05-06 10:36] LABS: ALT 19 U/L (10-49); AST 24 U/L (14-35); Chol/HDL Ratio 3.59 Ratio; LDL Cholesterol,Calculated 63.9 mg/dL (0.0-131.0)
== END | disposition home or self-care (01) ==
LOC: LABWHC1 07:00
PROVIDERS: ATTEND Internal Medicine Interventional Cardiology
DX: E78.2 Mixed hyperlipidemia (principal)
CPT/HCPCS: 36415; 80061; 84450; 84460

== ENCOUNTER → 2024-11-09 | Outpatient (CLI) | payer MEDICARE ==
--- NOTE | 2024-11-09 11:50 | CTL ---
EXAMINATION TYPE: CT Low Dose Lung DATE OF EXAM ORDERED: 11/09/2024 COMPARISON: Chest radiograph 02/27/2023 CLINICAL INDICATION: Male, 74 years old with history of Z12.2 ENCTR SCRN FOR MALIGN NEOPLASM; PHH, fo rmer smoker, quit 3 years ago. smoked 1/2 ppd x45 years., Lung cancer screening, History of Smoking/t obacco use. TECHNIQUE: Low dose computed tomography scan was performed through the chest at 1 mm thick sections a nd reconstructed images in multiple planes at 1 mm and [address] DLP: 146.[address] CTDI: 3.6 mGy Automated exposure control for dose reduction was used. CT DIAGNOSTIC QUALITY: Satisfactory FINDINGS: Nodules: No clinically significant pulmonary nodules. LUNGS: COPD: Severity: Mild centrilobular emphysematous change. Fibrosis: Severity: None Lymph nodes: None Other findings: None RIGHT PLEURAL SPACE: Effusion: None Calcification: None Thickening: None Pneumothorax: None LEFT PLEURAL SPACE: Effusion: None Calcification: None Thickening: None Pneumothorax: None HEART: Heart Size: Normal Coronary Calcification: Mild Pericardial Effusion: Trace OTHER FINDINGS: Upper abdomen: None Bony thorax: None Supraclavicular region: None Other: None IMPRESSION: 1. No clinically significant pulmonary nodules. 2. Mild COPD changes. CT LUNG RAD AND CT CHEST RECOMMENDATION: Lung-Rad 1 Negative: Continue annual screening with LDCT in 12 months. S Modifier (other clinically significant findings): None [facility], , 11/09/2024 11:48 AM
[2024-11-09 15:17] LABS: Chol/HDL Ratio 4.35 Ratio; LDL Cholesterol,Calculated 112.6 mg/dL (0.0-131.0); Prostate Specific Antigen 3.21 ng/mL (0.000-6.500)
== END | disposition home or self-care (01) ==
LOC: RADCTMAIN 11:05
PROVIDERS: ATTEND Family Medicine
DX: Z12.2 Encounter for screening for malignant neoplasm of respiratory organs (principal); E78.5 Hyperlipidemia, unspecified; Z12.5 Encounter for screening for malignant neoplasm of prostate; Z87.891 Personal history of nicotine dependence; J44.9 Chronic obstructive pulmonary disease, unspecified
CPT/HCPCS: 71271; 80061; 84153

== ENCOUNTER → 2025-01-18 | Outpatient (CLI) | payer MEDICARE ==
[2025-01-18 15:16] LABS: Chol/HDL Ratio 3.09 Ratio
[2025-01-18 15:17] LABS: ALT 23 U/L (10-49); AST 23 U/L (14-35); LDL Cholesterol,Calculated 60.9 mg/dL (0.0-131.0)
== END | disposition home or self-care (01) ==
LOC: LABWHC1 09:27
PROVIDERS: ATTEND Internal Medicine Interventional Cardiology
DX: E78.2 Mixed hyperlipidemia (principal)
CPT/HCPCS: 36415; 80061; 84450; 84460

== ENCOUNTER → 2025-02-16 | Outpatient (CLI) | payer MEDICARE ==
[2025-02-16 19:11] LABS: HCT 50.8 % (39.6-50.0); HGB 17.2 g/dL (13.0-17.0); MCH 31.2 pg (27.0-32.0); MCHC 33.9 g/dL (32.0-37.0); MCV 92.2 FL (80.0-97.0); NRBC Per 100 WBC 0 X 10*3/uL (0.00-0.01); Platelet Count 211 X 10*3/uL (140-440); RBC 5.51 X 10*6/uL (4.40-5.60); RDW 12.5 % (11.5-14.5); WBC 7.08 X 10*3/uL (4.50-10.00)
[2025-02-16 19:20] LABS: ALT 25 U/L (10-49); AST 25 U/L (14-35); Albumin 4.2 g/dL (3.8-4.9); Albumin/Globulin Ratio 1.45 Ratio (1.60-3.17); Alkaline Phosphatase 116 U/L (41-126); BUN/Creat Ratio 10.43 Ratio (12.00-20.00); Blood Urea Nitrogen 14.6 mg/dL (9.0-27.0); Calcium 9.5 mg/dL (8.7-10.3); Chloride 100 mmol/L (96-109); Globulin 2.9 g/dL (1.6-3.3); Glucose 313 mg/dL (70-110); Potassium 4.6 mmol/L (3.5-5.5); Sodium 137 mmol/L (135-145); Total Bilirubin 0.8 mg/dL (0.3-1.2); Total Protein 7.1 g/dL (6.2-8.2)
== END | disposition home or self-care (01) ==
LOC: LABWHC1 15:26
PROVIDERS: ATTEND Internal Medicine Interventional Cardiology
DX: I48.11 Longstanding persistent atrial fibrillation (principal)
CPT/HCPCS: 36415; 80053; 84443; 85027

== ENCOUNTER 2025-05-02 06:06 | Day surgery (SDC) | payer MEDICARE ==
[2025-05-02 06:43] VITALS: TEMP 97.1
[2025-05-02] MEDS: SODIUM CHLORIDE 0.9% 500 ML 500 ML IV ONE (06:59)
[2025-05-02] MEDS: SODIUM CHLORIDE 0.9% 500 ML 500 ML IV SCH (06:59)
[2025-05-02] MEDS ORDERED: PHENYLEPHRINE-0.9% NACL SYG 1,000 MCG/10 ML SYRINGE ONE (07:10)
[2025-05-02] MEDS ORDERED: PROPOFOL 10 MG/ML 20 ML VIAL IV ONE (07:10)
[2025-05-02] MEDS: BENZOCAINE SPRAY 1 EACH TOPICAL STA (07:12)
[2025-05-02 07:13] LABS: Glucose,Whole Blood 122 mg/dL (70-110)
--- NOTE | 2025-05-02 07:36 | P.PCN ---
Date of Procedure: 05/02/25 Description of Procedure: Indication: Atrial fibrillation Procedure Description: After explaining the procedure to the patient, it's risk and complications, blood pressure, heart rate and O2 saturation were monitored. The throat was sprayed with Cetacaine. Patient received sedation per anesthesia department. The probe was introduced into the esophagus without difficulty. Images were obtained. Following that, the probe was removed. There was no immediate complication. Findings: Left atrial size is dilated, left atrial appendage is normal. Left ventricular systolic function is mildly to moderately impaired with inferior wall hypokinesis. Estimate ejection fraction 40 to 45%. The mitral valve revealed mild thickening of the mitral valve leaflets. The aortic valve is a tricuspid valve with mild fibrocalcific changes and preserved opening. Tricuspid and pulmonic valve appears to be normal. Descending thoracic aorta appears to be normal. No pericardial effusion was noted. Contrast bubble study revealed no shunting across the interatrial septum. Doppler: Pulse wave and color Doppler were obtained, and revealed mild mitral with trace tricuspid regurgitation. There was no shunting across the interatrial septum. Conclusion: 1. Dilated left atrium with normal appearance of the left atrial appendage 2. Normal ventricle systolic function with mild to moderate impairment of the systolic function 3. Mild mitral with trace tricuspid regurgitation 4. No shunting across the interatrial septum 5. No pericardial effusion Cardioversion: After performing SHANE and obtaining sedated state per anesthesia department synchronized biphasic cardioversion using 150 J was performed with yarsani of sinus mechanism, there was no immediate complications.
[2025-05-02 08:39] VITALS: BP 110/60; PULSE 58; RESP 17
[2025-05-02] MEDS ORDERED: glipiZIDE 5 MG TAB PO SCH (09:00)
[2025-05-02] MEDS ORDERED: [UNRECOGNIZED DRUG - OTHER] PO SCH (09:00)
[2025-05-02] MEDS ORDERED: APIXABAN 5 MG TAB PO SCH (21:00)
== END 2025-05-02 08:55 | disposition home or self-care (01) ==
LOC: OR 06:06
PROVIDERS: ATTEND Internal Medicine Interventional Cardiology
DX: I25.10 Atherosclerotic heart disease of native coronary artery without angina pectoris (principal); I48.11 Longstanding persistent atrial fibrillation; I25.2 Old myocardial infarction; I25.5 Ischemic cardiomyopathy; E11.9 Type 2 diabetes mellitus without complications; E78.2 Mixed hyperlipidemia; Z72.0 Tobacco use; Z79.82 Long term (current) use of aspirin; Z79.02 Long term (current) use of antithrombotics/antiplatelets; Z79.899 Other long term (current) drug therapy
CPT/HCPCS: 93312; 93320; 93325; 92960; J2704; J2371